=== PATIENT | male | born 1970 | race Caucasian/White ===

== ENCOUNTER 2017-01-03 23:44 | Emergency (ER) | payer BC ==
[2017-01-04] MEDS ORDERED: LORAZEPAM INJ 2 MG/1 ML VIAL IV ONE (00:06)
[2017-01-04] MEDS ORDERED: NORMAL SALINE 1000 ML 1,000 ML IV ONE (00:06)
[2017-01-04 00:53] LABS: ABSOLUTE BASOPHILS # (AUTO) 0.1 10^3/uL (0.0-0.2); ABSOLUTE EOSINOPHILS # (AUTO) 0.1 10^3/uL (0.0-0.6); ABSOLUTE LYMPHOCYTES (AUTO) 1.3 10^3/uL (0.5-4.7); ABSOLUTE MONOCYTES (AUTO) 0.7 10^3/uL (0.1-1.4); ABSOLUTE NEUT (AUTO) 5.2 10^3/uL (1.7-8.2); BASOPHILS % (AUTO) 0.7 % (0-2); EOSINOPHILS % (AUTO) 1.1 % (0-6); HEMATOCRIT 45.1 % (37.9-51.0); HEMOGLOBIN 15.6 g/dL (13.5-17.0); HGB HCT DIFFERENCE 1.7; LYMPHOCYTES % (AUTO) 17.7 % (13-45); MEAN CORPUSCULAR HEMOGLOBIN 31.5 pg (27.0-33.4); MEAN CORPUSCULAR HGB CONC 34.6 g/dL (32.0-36.0); MEAN CORPUSCULAR VOLUME 91 fl (80-97); MONOCYTES % (AUTO) 9.6 % (3-13); RED BLOOD COUNT 4.96 10^6/uL (4.35-5.55); RED CELL DISTRIBUTION WIDTH 12.9 % (11.5-14.0); SEGMENTED NEUTROPHILS % (AUTO) 70.9 % (42-78); WHITE BLOOD COUNT 7.3 10^3/uL (4.0-10.5)
--- NOTE | 2017-01-04 01:00 | ER Document Report ---
ED General - General Chief Complaint: Shortness Of Breath Stated Complaint: SHORT OF BREATH Notes: Patient is a 46-year-old male who presents with complaint of some shortness of breath. He says that he has not slept the last 24 hours. He says his also due to work. He missed his morning blood pressure medication. Tonight he certainly like his heart was racing. He felt short of breath. He did not have chest pain. His blood pressure was high. He said he felt unwell feel achy all over. He felt as if he was breathing rapidly. Paramedics placed him on oxygen. His oxygenation was 90% on room air when he arrived. He was tachycardic. Patient is on eyedrops for his glaucoma. He did look up side effects of eyedrops and said that symptoms he is having are listed in the possible side effects from the eyedrops. He's been taking eyedrops for 6 months. TRAVEL OUTSIDE OF THE [place] IN LAST 30 DAYS: No - Related Data Allergies/Adverse Reactions: levofloxacin [From Levaquin] Allergy (Verified 05/07/14 18:54) penicillin G [Penicillin G] Allergy (Verified 05/07/14 18:54) Past Medical History - Social History Smoking Status: Unknown if Ever Smoked Frequency of alcohol use: None Drug Abuse: None Family History: Reviewed & Not Pertinent - Past Medical History Cardiac Medical History: Reports: Hx Hypertension Pulmonary Medical History: Denies: Hx Tuberculosis - Immunizations Immunizations up to date: Yes Hx Diphtheria, Pertussis, Tetanus Vaccination: Yes Hx Pneumococcal Vaccination: 11/24/10 Review of Systems - Review of Systems Notes: My Normal Review Basic REVIEW OF SYSTEMS: CONSTITUTIONAL : Denies fever, chills, or sweats. Denies recent illness. EENT: Denies eye, ear, throat, or mouth pain or symptoms. Denies nasal or sinus congestion. CARDIOVASCULAR: Denies chest pain. RESPIRATORY: Short of breath GASTROINTESTINAL: Denies abdominal pain. Denies nausea, vomiting, or diarrhea. Denies constipation. Last BM: MUSCULOSKELETAL: Denies neck or back pain or joint pain or swelling. SKIN: Denies rash or skin lesions. NEUROLOGICAL: Denies altered mental status or loss of consciousness. Denies headache. Denies weakness or paralysis or loss of use of either side. Denies problems with gait or speech. Denies sensory or motor loss. ALL OTHER SYSTEMS REVIEWED AND NEGATIVE. Physical Exam - Vital signs Vitals: Temp Pulse Resp BP Pulse Ox 97.7 F 106 H 18 121/47 L 98 01/03/17 23:57 01/03/17 23:57 01/03/17 23:57 01/03/17 23:57 01/03/17 23:57 - Notes Notes: General Appearance: Well nourished, alert, cooperative, no acute distress, no obvious discomfort. Well-appearing. Vitals: reviewed, See vital signs table. Head: no swelling or tenderness to the head Eyes: PERRL, EOMI, Conjuctiva clear Mouth: No decreasd moisture Neck: Supple, no neck tenderness, No thyromegaly Lungs: No wheezing, No rales, No rhonci, No accessory muscle use, good air exchange bilaterally. Heart: Regular rate, Regular rythm, No murmur, no rub Abdomen: Normal BS, soft, No rigidity, No abdominal tenderness, No guarding, no rebound, no abdominal masses, no organomegaly Extremities: strength 5/5 in all extremities, good pulses in all extremities, no swelling or tenderness in the extremities, no edema. Skin: warm, dry, appropriate color, no rash Neuro: speech clear, oriented x 3, normal affect, responds appropriately to questions. Cranial nerves II through XII are intact. Distal sensation intact. Patient moves all extremities without difficulty. Course - Re-evaluation Re-evalutation: 01/04/17 01:30 Since receiving the Ativan patient feels much improved. Chest x-ray is pending. - Vital Signs Vital signs: Temp Pulse Resp BP Pulse Ox 97.7 F 106 H 15 104/61 97 01/03/17 23:57 01/03/17 23:57 01/04/17 03:01 01/04/17 03:01 01/04/17 03:01 - Laboratory Result Diagrams: 01/04/17 00:30 01/04/17 00:30 Laboratory results interpreted by me: 01/04/17 00:30 BUN 22 H Glucose 115 H Creatine Kinase 228 H - EKG Interpretation by Me Additional EKG results interpreted by me: 01/04/17 00:59 EKG is reviewed and interpreted by me. EKG shows normal sinus rhythm with rate of [address] segment elevation or depression. No ischemic T wave inversions. [place] level, QRS duration, QTC was are within normal range. Old EKG for comparison is from 05/07/2014. - Transfer of Care Notes: 01/04/17 05:56 Patient feels much improved after the Ativan. I suspect his symptoms of palpitations, difficulty breathing, feeling unwell most likely are related to extreme exhaustion and possibly a panic attack after being awake for over 24 hours from work. Work shows no external abnormalities. His symptoms improved with Ativan. He looks extremely well. His blood pressure is normal. Fairly safe to be discharged home. Encouraged to return to ER if he has recurrence of his symptoms or feels unwell. Patient agrees with plan and will be discharged home. Dictation of this chart was performed using voice recognition software; therefore, there may be some unintended grammatical errors. Discharge - Discharge Clinical Impression: Dyspnea Qualifiers: Dyspnea type: unspecified Qualified Code(s): R06.00 - Dyspnea, unspecified Condition: Good Disposition: HOME, SELF-CARE Additional Instructions: PLease rest over the next 24 hours. Please return to ER if you have recurrence of shortness of breath, any chest pain, or feel unwell. Forms: Return to Work Referrals: THOMAS WALLACE MD [Primary Care Provider] - 01/06/17
[2017-01-04 01:03] LABS: ALANINE AMINOTRANSFERASE 42 U/L (21-72); ALBUMIN 4.1 g/dL (3.5-5.0); ALKALINE PHOSPHATASE 88 U/L (38-126); ANION GAP 11 (5-19); ASPARTATE AMINO TRANSFERASE 26 U/L (17-59); BILIRUBIN,TOTAL 0.3 mg/dL (0.2-1.3); BLOOD UREA NITROGEN 22 mg/dL (7-20); CALCIUM 10.1 mg/dL (8.4-10.2); CARBON DIOXIDE 27 mmol/L (22-30); CHLORIDE 103 mmol/L (98-107); CREATINE KINASE 228 U/L (55-170); CREATININE RESULT 1.12 mg/dL (0.52-1.25); GLUCOSE 115 mg/dL (75-110); SODIUM 141.2 mmol/L (137-145); TOTAL PROTEIN 7.2 g/dL (6.3-8.2)
[2017-01-04 01:14] LABS: CREATINE KINASE MB 1.98 ng/mL (<4.55)
[2017-01-04 01:16] LABS: TROPONIN I < 0.012 ng/mL
[2017-01-04 03:27] VITALS: BP 104/61
--- NOTE | 2017-01-04 08:46 | EKG REPORT ---
SEVERITY:- OTHERWISE NORMAL ECG - SINUS RHYTHM LEFT AXIS DEVIATION : Confirmed by: Sebastián Dale MD 04-Jan-2017 08:45:23
== END 2017-01-04 03:26 | disposition home or self-care (01) ==
LOC: ER 23:44
DX: R06.02 Shortness of breath (principal); R00.2 Palpitations; I10 Essential (primary) hypertension; Z91.14 Patient's other noncompliance with medication regimen; R00.0 Tachycardia, unspecified; H40.9 Unspecified glaucoma; Z79.899 Other long term (current) drug therapy; Z88.1 Allergy status to other antibiotic agents; Z88.0 Allergy status to penicillin
CPT/HCPCS: 93005; 99285; 96361; 96374; 36415; 82553; 82550; 85025; 80053; 84484; 71020; 93010; J2060; J7030

== ENCOUNTER 2017-01-05 14:47 | Emergency (ER) | payer BC ==
--- NOTE | 2017-01-05 15:52 | ER Document Report ---
ED Medical Screen (RME) - General Chief Complaint: Abdominal Pain Stated Complaint: ABDOMINAL PAIN Time seen by provider: 15:50 Mode of Arrival: Ambulatory Information source: Patient Notes: 46-year-old male presents to ED for right lower quadrant abdominal pain for 2 days. Denies fevers, and denies nausea or vomiting. States she was in the emergency room 2 days ago for shortness of breath and elevated blood pressure. States he has a history of high blood pressure and is on lisinopril with Hydrocort Dyazide. I have greeted and performed a rapid initial assessment of this patient. A comprehensive ED assessment and evaluation of the patient, analysis of test results and completion of medical decision making process will be conducted by an additional ED providers. TRAVEL OUTSIDE OF THE [place] IN LAST 30 DAYS: No - Related Data Allergies/Adverse Reactions: levofloxacin [From Levaquin] Allergy (Verified 05/07/14 18:54) penicillin G [Penicillin G] Allergy (Verified 05/07/14 18:54) Past Medical History - Past Medical History Cardiac Medical History: Reports: Hx Hypertension Pulmonary Medical History: Denies: Hx Tuberculosis - Immunizations Immunizations up to date: Yes Hx Diphtheria, Pertussis, Tetanus Vaccination: Yes Physical Exam - Vital signs Vitals: Temp Pulse Resp BP Pulse Ox 97.4 F 81 18 141/79 H 96 01/05/17 15:23 01/05/17 15:23 01/05/17 15:23 01/05/17 15:23 01/05/17 15:23 Course - Vital Signs Vital signs: Temp Pulse Resp BP Pulse Ox 97.4 F 81 18 141/79 H 96 01/05/17 15:23 01/05/17 15:23 01/05/17 15:23 01/05/17 15:23 01/05/17 15:23
[2017-01-05 17:04] LABS: ABSOLUTE LYMPHOCYTES (AUTO) 0.9 10^3/uL (0.5-4.7); ABSOLUTE MONOCYTES (AUTO) 0.9 10^3/uL (0.1-1.4); ABSOLUTE NEUT (AUTO) 12.2 10^3/uL (1.7-8.2); BASOPHILS % (AUTO) 0.2 % (0-2); EOSINOPHILS % (AUTO) 0.3 % (0-6); HEMATOCRIT 45.7 % (37.9-51.0); HEMOGLOBIN 15.3 g/dL (13.5-17.0); HGB HCT DIFFERENCE 0.2; LYMPHOCYTES % (AUTO) 6.2 % (13-45); MEAN CORPUSCULAR HEMOGLOBIN 30.5 pg (27.0-33.4); MEAN CORPUSCULAR HGB CONC 33.6 g/dL (32.0-36.0); MEAN CORPUSCULAR VOLUME 91 fl (80-97); MONOCYTES % (AUTO) 6.4 % (3-13); RED BLOOD COUNT 5.02 10^6/uL (4.35-5.55); SEGMENTED NEUTROPHILS % (AUTO) 86.9 % (42-78)
[2017-01-05 17:09] LABS: APPEARANCE,URINE CLEAR; BILIRUBIN,URINE NEGATIVE (NEGATIVE); GLUCOSE, URINE NEGATIVE (NEGATIVE); KETONES,URINE 100 mg/dL (NEGATIVE); LEUKOCYTE ESTERASE,URINE NEGATIVE (NEGATIVE); NITRITE,URINE NEGATIVE (NEGATIVE); PROTEIN,URINE NEGATIVE (NEGATIVE); UROBILINOGEN,URINE NEGATIVE mg/dL (<2.0)
[2017-01-05 17:12] LABS: URINE SPECIFIC GRAVITY 1.011
[2017-01-05 17:23] LABS: ALANINE AMINOTRANSFERASE 44 U/L (21-72); ALBUMIN 5.1 g/dL (3.5-5.0); ALKALINE PHOSPHATASE 80 U/L (38-126); ANION GAP 14 (5-19); ASPARTATE AMINO TRANSFERASE 28 U/L (17-59); BILIRUBIN,TOTAL 0.6 mg/dL (0.2-1.3); BLOOD UREA NITROGEN 24 mg/dL (7-20); CARBON DIOXIDE 25 mmol/L (22-30); CHLORIDE 101 mmol/L (98-107); CREATININE RESULT 1.25 mg/dL (0.52-1.25); GLUCOSE 94 mg/dL (75-110); POTASSIUM 3.9 mmol/L (3.6-5.0); SODIUM 139.8 mmol/L (137-145); TOTAL PROTEIN 7.8 g/dL (6.3-8.2)
[2017-01-05] MEDS ORDERED: NORMAL SALINE 1000 ML 1,000 ML IV ONE (20:27)
--- NOTE | 2017-01-05 20:32 | ER Document Report ---
ED GI/ - General Chief Complaint: Abdominal Pain Stated Complaint: ABDOMINAL PAIN Mode of Arrival: Ambulatory Information source: Patient Notes: This is a 46-year-old male who presents with chief complaint of right lower quadrant discomfort that began yesterday morning and has persisted today. He has had no nausea and no vomiting but he does state that his appetite has been significantly decreased today. He last had 2 bites of barbecue at 1400 today. Last bowel movement was yesterday and was soft. He has had no fevers or chills. Of note he was seen 2 nights ago for shortness of breath and it was determined that he may be having some side effects from his glaucoma medications. He denies any dysuria, hematuria or flank pain. TRAVEL OUTSIDE OF THE [place] IN LAST 30 DAYS: No - Related Data Allergies/Adverse Reactions: levofloxacin [From Levaquin] Allergy (Verified 01/05/17 16:16) penicillin G [Penicillin G] Allergy (Verified 01/05/17 16:16) Past Medical History - General Information source: Patient - Social History Smoking Status: Never Smoker Frequency of alcohol use: None Drug Abuse: None Family History: Reviewed & Not Pertinent Patient has suicidal ideation: No Patient has homicidal ideation: No - Past Medical History Cardiac Medical History: Reports: Hx Hypertension Pulmonary Medical History: Denies: Hx Tuberculosis EENT Medical History: Reports: Other - glaucoma Renal/ Medical History: Denies: Hx Peritoneal Dialysis GI Medical History: Reports: Other - "celiac trait" which he states sometimes causes right lower quadrant discomfort Past Surgical History: Reports: Hx Orthopedic Surgery - Immunizations Immunizations up to date: Yes Hx Diphtheria, Pertussis, Tetanus Vaccination: Yes Hx Pneumococcal Vaccination: 11/24/10 Review of Systems - Review of Systems Notes: REVIEW OF SYSTEMS: CONSTITUTIONAL : Denies fever, chills, or sweats. Denies recent illness. EENT: Denies eye, ear, throat, or mouth pain or symptoms. Denies nasal or sinus congestion. CARDIOVASCULAR: Denies chest pain. RESPIRATORY: Denies cough, cold, or chest congestion. Denies shortness of breath, difficulty breathing, or wheezing. GASTROINTESTINAL: As per history of present illness GENITOURINARY: Denies difficulty urinating, painful urination, burning, frequency, or blood in urine. MUSCULOSKELETAL: Denies neck or back pain or joint pain or swelling. SKIN: Denies rash or skin lesions. HEMATOLOGIC : Denies easy bruising or bleeding. LYMPHATIC: Denies swollen, enlarged glands. NEUROLOGICAL: Denies altered mental status or loss of consciousness. Denies headache. PSYCHIATRIC: Denies anxiety or stress or depression. ALL OTHER SYSTEMS REVIEWED AND NEGATIVE. Physical Exam - Vital signs Vitals: Temp Pulse Resp BP Pulse Ox 97.4 F 81 18 141/79 H 96 01/05/17 15:23 01/05/17 15:23 01/05/17 15:23 01/05/17 15:23 01/05/17 15:23 - Notes Notes: General Appearance: Well nourished, alert, cooperative, no acute distress, no obvious discomfort. Well-appearing. Anxious affect and worried about a myriad of symptoms. Vitals: reviewed, See vital signs table. Head: no swelling or tenderness to the head Eyes: PERRL, EOMI, Conjuctiva clear Mouth: No decreased moisture Neck: Supple, no neck tenderness Lungs: No wheezing, No rales, No rhonci, No accessory muscle use, good air exchange bilaterally. Heart: Regular rate, Regular rythm, No murmur, no rub Abdomen: Normal BS, soft, No rigidity, mild tenderness to palpation to right lower quadrant and right mid-abdomen, no rebound Extremities: strength 5/5 in all extremities, good pulses in all extremities, no swelling or tenderness in the extremities, no edema. Skin: warm, dry, appropriate color, no rash Neuro: speech clear, oriented x 3, normal affect, responds appropriately to questions. Cranial nerves II through XII are intact. Distal sensation intact. Patient moves all extremities without difficulty. Course - Re-evaluation Re-evalutation: 01/05/17 21:34 I discussed the results of the patient's CT scan to include a normal appendix and no acute process. During the time of my discussion patient developed scattered hives on his left upper extremity and 1 spot on his left cheek. Will treat with IV Benadryl and Solu-Medrol as I suspect he may have a contrast allergy. Lungs clear to auscultation bilaterally no oral swelling noted he is speaking full sentences. 01/05/17 22:17 Patient reevaluated. His few scattered hives are resolving. He is pleasant and conversant and states he feels just fine. 01/05/17 22:21 01/05/17 22:23 Repeat abdominal exam: Soft, nondistended, mild tenderness to palpation on the right side of the abdomen without guarding, rebound, or rigidity. There is no acute abdomen. Again we reviewed his labs and his negative CT scan. I suspect that some of his symptoms are secondary to his celiac which he initially said sometimes gives him these symptoms. He does have a mild leukocytosis which is new, but with nonsurgical exam and a negative CT we'll send home and he will follow-up with his primary care physician. He did discuss strict return precautions including fevers, increasing pain, vomiting or worsening symptoms or concerns. He and his are comfortable with this plan and all questions are answered. 01/06/17 01:38 - Vital Signs Vital signs: Temp Pulse Resp BP Pulse Ox 97.6 F 69 16 105/60 92 01/05/17 23:29 01/05/17 23:29 01/05/17 23:29 01/05/17 23:29 01/05/17 23:29 - Laboratory Result Diagrams: 01/05/17 16:15 01/05/17 16:15 Laboratory results interpreted by me: 01/05/17 01/05/17 01/05/17 16:15 16:15 16:15 WBC 14.0 H Seg Neutrophils % 86.9 H Lymphocytes % 6.2 L Absolute Neutrophils 12.2 H BUN 24 H Albumin 5.1 H Urine Ketones 100 H - Diagnostic Test Radiology reviewed: Reports reviewed - No acute finding in the abdomen or pelvis on the CT scan. The appendix was visualized and normal. Discharge - Discharge Clinical Impression: Abdominal pain in male, Anxiety Allergic reaction Qualifiers: Encounter type: initial encounter Qualified Code(s): T78.40XA - Allergy, unspecified, initial encounter Condition: Stable Disposition: HOME, SELF-CARE Additional Instructions: ABDOMINAL PAIN: There are many causes of abdominal pain. Pain can mean a serious problem requiring surgery (such as appendicitis). It can also be an innocent problem that goes away on its own (such as a viral infection). Often, time must pass to determine the cause of pain. The physician does not feel that hospitalization is necessary, at present. Things may change within the next 24 hours. Call the doctor or come back for re- examination if any problems occur, such as: (1) Pain that becomes more severe, steady, or becomes concentrated in one specific area. Also, pain that is more severe with movement or coughing. (2) Vomiting that persists or becomes more frequent. (3) Blood in the vomitus, urine, or bowel movements. Blood in the stool may have a tarry or black appearance. (4) Shaking chills or fever greater than 100 degrees F. (5) The abdomen becomes more distended or swollen. (6) Bowel movements cease. (7) Failure to improve as expected. NORMAL EXAM AND WORKUP: At this time, your examination and workup show no significant abnormality. No significant abnormal physical findings are noted. All imaging (x-ray, CT scans, ultrasound) studies that were ordered show no significant abnormality. Although your examination and all studies that were ordered showed no significant abnormal finding, there are no examinations and no studies that are 100% accurate. There is always the possibility that some abnormality could exist and not be detected with physical examination or within the limits and capabilities of laboratory and other studies. You should return or follow up as you were instructed on your visit today for further evaluation if your symptoms do not resolve. ACUTE ALLERGIC REACTION: Your symptoms are due to an allergic reaction. Allergy can cause hives, swelling of the hands, feet, and face, hoarseness, and difficulty swallowing or breathing. It may be due to exposure to medication, animal dander, foods, infection, or insect bites. Medication is a common cause, even when prior use of this same medication caused no problems. Acute treatment may include adrenalin and antihistamines. Usually, the specific allergic agent can't be identified unless repeated episodes occur. Home treatment includes the following: (1) Stop any suspicious medications. This will be discussed with you. (2) Oral antihistamines for the next four to five days. Example, diphenhydramine (Benadryl) every four hours. (3) You may also use cimetidine (Tagamet), ranitidine (Zantac), or famotidine ( Pepcid) every four hours if diphenhydramine is not controlling itching and hives. (4) Avoid aspirin until the hives completely disappear. (5) Avoid hot baths or showers until the hives are completely gone. Call the doctor if faintness, difficulty swallowing, tightness in the chest , or wheezing occurs. STEROID MEDICATION INJECTION: You have been given an injection of medicine of the cortisone/steroid class. This medication is used to control inflammation or allergy. It is often continued as a pill for a short period of time, until the acute process subsides. There are usually no side effects from short-term use of cortisone-like medications. Some persons feel an increased sense of well-being and are not sleepy at bedtime. Long-term use of cortisone medications is best avoided, unless required for a severe condition. If your condition does not remit, or relapses after the course of corticosteroid medication, you should consult your physician. STEROID MEDICATION: You have been given a medicine of the cortisone/steroid class. This medication is used to control inflammation or allergy. It is usually only given for a short period of time, until the acute process subsides. There are usually no side effects from short-term use of cortisone-like medications. Some persons feel an increased sense of well-being and are not sleepy at bedtime. Long-term use of cortisone medications is best avoided, unless required for a severe condition. If your condition does not remit, or relapses after the course of corticosteroid medication, you should consult your physician. ANTIHISTAMINES: An antihistamine has been given and/or prescribed to control your symptoms. Antihistamines are used for many reasons, including itching, watering eyes, runny nose, allergic swelling, hives, and insect stings. Antihistamines may cause drowsiness, especially with the first dose. Do not operate machinery or drive while under the effects of the medication. Other common side effects include dry mouth and eyes. In older persons, antihistamines can occasionally cause urinary retention, constipation, and trouble focusing the eyes. Do not combine the medication with alcohol, or with any other medication without talking to your doctor. USE OF DIPHENHYDRAMINE: The use of diphenhydramine (Benadryl) has been recommended to control allergic symptoms. The 25 mg strength is available over- the-counter, as well as the elixir. This antihistamine is used for many symptoms. It's useful for itching, watering eyes and nose, allergic swelling, hives, and insect stings. The medication can be repeated four times daily. Age Elixir (12.5 mg/tsp) 25 mg pill 2-3 yr 1/2 tsp 4-8 yr 1 tsp 9-14 yr 2 tsp one tab adult 1-2 tabs Antihistamines may cause drowsiness, especially with the first dose. Do not operate machinery or drive while under the effects of the medication. Do not combine the medication with alcohol, or with any other medication without talking to your doctor. FOLLOW-UP CARE: If you have been referred to a physician for follow-up care, call the physician s office for an appointment as you were instructed or within the next two days. If you experience worsening or a significant change in your symptoms, notify the physician immediately or return to the Emergency Department at any time for re-evaluation. As we discussed, return for fever greater than 100.3, increasing pain, vomiting , or any worsening symptoms or concerns. Please follow up with your primary physician in 24 hours. Prescriptions: Prednisone 50 mg PO DAILY #4 tablet Forms: Return to Work Referrals: EVELYN GÓMEZ MD [Primary Care Provider] - Follow up in 3-5 days
[2017-01-05] MEDS ORDERED: METHYLPREDNISOLONE INJ 500 MG VIAL IV ONE (21:32)
[2017-01-05] MEDS ORDERED: DIPHENHYDRAMINE HCL 50 MG/ML VIAL IV ONE ×2 (21:32→21:33)
[2017-01-05] MEDS ORDERED: METHYLPREDNISOLONE INJ 125 MG/2 ML SDV ONE (21:44)
[2017-01-06 00:04] VITALS: BP 105/60
== END 2017-01-05 23:33 | disposition home or self-care (01) ==
LOC: ER 14:47
DX: R10.31 Right lower quadrant pain (principal); F41.9 Anxiety disorder, unspecified; T78.40XA Allergy, unspecified, initial encounter
CPT/HCPCS: 99284; 96361; 96374; 96375; 36415; 85025; 80053; 81001; 74177; J1200; J7030; J2920

== ENCOUNTER 2017-03-02 00:10 | Emergency (ER) | payer BC ==
[2017-03-02] MEDS ORDERED: KETOROLAC TROMETHAMINE 60 MG/2 ML SDV IM ONE (00:57)
--- NOTE | 2017-03-02 01:02 | ER Document Report ---
HPI - HPI Patient complains to provider of: left knee pain Onset: Yesterday Onset/Duration: Sudden Quality of pain: Throbbing Severity: Severe Pain Level: 5 Context: She presents to the emergency department with complaints of left knee pain. 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 Since that time he's had pain with walking. Also complains of pain when flexing his knee. Denies past medical history of injury to the knee. No complaints other symptoms such as fever vomiting diarrhea. Patient took 2 Flexeril and Motrin before coming to the emergency department complains of severe pain still. Associated Symptoms: None Exacerbated by: Movement, Walking Relieved by: Denies Similar symptoms previously: No Recently seen / treated by doctor: No - DERM Skin Color: Normal Past Medical History - General Information source: Patient - Social History Smoking Status: Never Smoker Chew tobacco use (# tins/day): No Frequency of alcohol use: None Drug Abuse: None Occupation: highway truck driver Lives with: Family Family History: Reviewed & Not Pertinent Patient has suicidal ideation: No Patient has homicidal ideation: No - Past Medical History Cardiac Medical History: Reports: Hx Hypertension Pulmonary Medical History: Denies: Hx Tuberculosis Renal/ Medical History: Denies: Hx Peritoneal Dialysis GI Medical History: Reports: Other - Celiac Past Surgical History: Reports: Hx Orthopedic Surgery - Immunizations Immunizations up to date: Yes Hx Diphtheria, Pertussis, Tetanus Vaccination: Yes Hx Pneumococcal Vaccination: 11/24/10 Vertical Provider Document - CONSTITUTIONAL Agree With Documented VS: Yes Exam Limitations: No Limitations General Appearance: WD/WN, Mild Distress - INFECTION CONTROL TRAVEL OUTSIDE OF THE [place] IN LAST 30 DAYS: No - HEENT HEENT: Atraumatic, Normocephalic - NECK Neck: Normal Inspection, Supple - RESPIRATORY Respiratory: No Respiratory Distress O2 Sat by Pulse Oximetry: 96 - CARDIOVASCULAR Cardiovascular: Regular Rate - MUSCULOSKELETAL/EXTREMETIES Musculoskeletal/Extremeties: Tender - Left anterior knee tender to palpation complains of pain with flexing, reports pain with drawer test, denies pain with valgus/varus stress - NEURO Level of Consciousness: Awake, Alert, Appropriate Motor/Sensory: No Motor Deficit - DERM Integumentary: Warm, Dry Adult Front & Back Diagram: 1 - reports pain Course - Re-evaluation Re-evalutation: 03/02/17 02:16 pt and updated on xray, intra-articular loose bodies , pt reports Toradol took the pain away. Requesting Toradol by mouth. Patient was instructed on the immobilizer crutches and follow-up with orthopedics on Friday. He reports he has to follow up with occupational therapy on Friday as it happened while he was working. - Vital Signs Vital signs: Temp Pulse Resp BP Pulse Ox 98.3 F 79 18 110/63 96 03/02/17 00:30 03/02/17 00:30 03/02/17 00:30 03/02/17 00:30 03/02/17 00:30 - Diagnostic Test Radiology reviewed: Image reviewed, Reports reviewed Procedures - Immobilization Left Knee Pre-Proc Neuro Vasc Exam: Normal Immobilizer type: Knee immobilizer Performed by: PCT Post-Proc Neuro Vasc Exam: Unchanged from pre-exam Discharge - Discharge Clinical Impression: Left anterior knee pain Condition: Stable Disposition: HOME, SELF-CARE Instructions: Antinausea Medication ([facility]), Use of Crutches ([facility]), Ice & Elevation ([facility]), Oral Narcotic Medication ([facility]), Toradol Injection ([facility]) Additional Instructions: *You have been evaluated for left knee pain *Maintain the splint, use the crutches *Rest/Ice/Elevate *Follow up with orthopedics-call for an appointment *Take medication as prescribed *Return to ED for worsening condition, changes, needs Prescriptions: Ketorolac Tromethamine [Toradol 10 mg Tablet] 10 mg PO Q6HP PRN #15 tablet PRN Reason: Forms: Return to Work
[2017-03-02] MEDS ORDERED: HYDROCODONE/ACETAMINOPHEN 5-325 MG 6 TAB/DSPK PO PRN (02:10)
[2017-03-02] MEDS ORDERED: ONDANSETRON ODT 4 MG TAB (6 TAB/DSPK) PO PRN (02:10)
[2017-03-02 02:22] VITALS: BP 132/68
== END 2017-03-02 02:20 | disposition home or self-care (01) ==
LOC: ER 00:10
DX: M23.42 Loose body in knee, left knee (principal); M25.562 Pain in left knee; I10 Essential (primary) hypertension
CPT/HCPCS: 99283; 96372; 73562; L1830; J1885

== ENCOUNTER 2017-07-19 06:19 | Emergency (ER) | payer BC ==
--- NOTE | 2017-07-19 07:36 | ER Document Report ---
ED Extremity Problem, Lower - General Mode of Arrival: Ambulatory Information source: Patient TRAVEL OUTSIDE OF THE [place] IN LAST 30 DAYS: No - HPI Patient complains to provider of: Pain Location: Foot - right heel Occurred: Other - 2 days Associated symptoms: Other - see above - General Chief Complaint: Foot Pain Stated Complaint: FOOT PAIN Time Seen by Provider: 07/19/17 06:47 Notes: Patient is a 47 year old male who presents to the ED with complaints of right heel pain x2 days. Patient is in physical therapy for a previous meniscus tear on his left lower extremity and has been favoring the right leg more. He has also been doing heel stretches that he does not normally do. Patient has also been going up and down ladders recently. Patient has a follow up with his orthopedic surgeon and physical therapy again on Friday. (DYAN HIGHTOWER) - Related Data Allergies/Adverse Reactions: Iodine and Iodide Containing Produc Allergy (Verified 03/02/17 00:33) levofloxacin [From Levaquin] Allergy (Verified 01/05/17 16:16) penicillin G [Penicillin G] Allergy (Verified 01/05/17 16:16) Past Medical History - General Information source: Patient - Social History Smoking Status: Unknown if Ever Smoked Family History: Reviewed & Not Pertinent Patient has suicidal ideation: No Patient has homicidal ideation: No - Past Medical History Cardiac Medical History: Reports: Hx Hypertension Pulmonary Medical History: Denies: Hx Tuberculosis Renal/ Medical History: Denies: Hx Peritoneal Dialysis Past Surgical History: Reports: Hx Orthopedic Surgery - Immunizations Immunizations up to date: Yes Hx Diphtheria, Pertussis, Tetanus Vaccination: Yes Hx Pneumococcal Vaccination: 11/24/10 Review of Systems - Review of Systems Constitutional: No symptoms reported EENT: No symptoms reported Cardiovascular: No symptoms reported Respiratory: No symptoms reported Gastrointestinal: No symptoms reported Genitourinary: No symptoms reported Male Genitourinary: No symptoms reported Musculoskeletal: See HPI, Other - right heel and ankle pain Skin: No symptoms reported Hematologic/Lymphatic: No symptoms reported Neurological/Psychological: No symptoms reported Physical Exam - General General appearance: Appears well, Alert In distress: None - HEENT Head: Normocephalic, Atraumatic Eyes: Normal Extraocular movements intact: Yes Pupils: PERRL - Respiratory Respiratory status: No respiratory distress - Cardiovascular Rhythm: Regular - Abdominal Distension: No distension - Back Back: Normal - Extremities General upper extremity: Normal inspection, Normal strength General lower extremity: Normal strength, Other - pain where achilles tendon meets the calcaneus on right lower extremity, no buldge, no signs of tendon rupture, specifically tender at pinpoint - Neurological Neuro grossly intact: Yes - Psychological Associated symptoms: Normal affect, Normal mood - Skin Skin Temperature: Warm Skin Moisture: Dry Skin Color: Normal - Vital signs Vitals: Temp Pulse Resp BP Pulse Ox 97.4 F 65 18 100/76 96 07/19/17 06:33 07/19/17 06:33 07/19/17 06:33 07/19/17 06:33 07/19/17 06:33 - Re-evaluation Re-evalutation: 07/19/17 07:56 Patient presents emerged from a 2 day history of pain over the back of his heel. Patient had a meniscal tear earlier this month and is been undergoing physical therapy and the past few days he has been doing up and down a ladder and stretching Achilles tendon during physical therapy that he has not done in years. He says it is aching. The pain is located right where the Achilles tendon meets the calcaneus there is no bulge no signs of tendon rupture is tender specifically at pinpoint like a tendinitis x-ray confirms similar. No other injury to the area ice elevation he has an orthopedic appointment on Friday and physical therapy on Friday and discussed reasons for ED return sooner (LASHA NULL) - Vital Signs Vital signs: Temp Pulse Resp BP Pulse Ox 97.4 F 56 L 18 114/66 94 07/19/17 06:33 07/19/17 08:15 07/19/17 08:15 07/19/17 08:15 07/19/17 08:15 Discharge - Discharge Clinical Impression: acute tendonitis Condition: Stable Disposition: HOME, SELF-CARE Additional Instructions: Tendonitis The pain you are having is due to tendonitis -- an inflammation around a muscle tendon. It's usually caused by overuse or repeated minor injuries ( strains) of the tendon. Tendonitis can take two to four weeks to heal. In fact, you may actually worsen for a few days despite treatment. Tendonitis is usually treated with rest, local heat, and antiinflammatory medication. Sometimes cold packs are recommended if the tendonitis has just started. If the pain is severe or prolonged, cortisone injections may be required. Call the doctor if pain or swelling become severe, if new discoloration or redness appears, or if numbness is noted. Follow-up with the orthopedic surgeon on Friday as scheduled ice elevation no weightbearing return for increasing worsening or new symptoms Prescriptions: Naproxen [Naprosyn 375 Mg Tablet] 375 mg PO DAILY #12 tablet Referrals: EVELYN GÓMEZ MD [Primary Care Provider] - Follow up as needed Scribe Attestation: 07/19/17 07:55 I personally performed the services described in the documentation reviewed the documentation recorded by my scribe in my presence and it accurately and completely records my words and actions (LASHA NULL) Scribe Documentation - Scribe Written by Hernan:: hernan Kirkland, 07/19/2017, 0952 acting as scribe for :: Mychal
--- NOTE | 2017-07-19 07:50 | RADIOLOGY REPORT (SQ) ---
EXAM DESCRIPTION: FOOT RIGHT COMPLETE COMPLETED DATE/TIME: 07/19/2017 7:27 am REASON FOR STUDY: right heel pain COMPARISON: None. NUMBER OF VIEWS: Three views. TECHNIQUE: AP, lateral and oblique radiographic images acquired of the right foot. LIMITATIONS: None. FINDINGS: MINERALIZATION: Normal. BONES: No acute fracture or dislocation. No worrisome bone lesions. Small plantar faucial enthesoph yte and small -moderate Achilles tendinous enthesophyte at the calcaneus. JOINTS: No effusions. SOFT TISSUES: No soft tissue swelling. No foreign body. OTHER: No other significant finding. IMPRESSION: Small right calcaneal enthesopathy. Otherwise, unremarkable. TECHNICAL DOCUMENTATION: JOB ID: [id number] [employer]- All Rights Reserved
[2017-07-19 08:17] VITALS: BP 114/66
== END 2017-07-19 08:15 | disposition home or self-care (01) ==
LOC: ER 06:19
DX: M79.671 Pain in right foot (principal); M77.9 Enthesopathy, unspecified
CPT/HCPCS: 99283

== ENCOUNTER 2017-09-06 16:31 | Inpatient (IN) | payer BC ==
--- NOTE | 2017-09-06 16:46 | ER Document Report ---
ED Medical Screen (RME) - General Chief Complaint: Palpitations Stated Complaint: SHORTNESS OF BREATH Time Seen by Provider: 09/06/17 16:40 TRAVEL OUTSIDE OF THE [place] IN LAST 30 DAYS: No - HPI Patient complains to provider of: Palpitations, shortness of breath Notes: 09/06/17 16:46 Patient is a 47-year-old male presenting to the emergency room complaining of palpitations and shortness of breath, EKG consistent with atrial fibrillation at a rate of 120 - Related Data Allergies/Adverse Reactions: Iodine and Iodide Containing Produc Allergy (Verified 09/06/17 16:35) levofloxacin [From Levaquin] Allergy (Verified 09/06/17 16:35) penicillin G [Penicillin G] Allergy (Verified 09/06/17 16:35) Past Medical History - Past Medical History Cardiac Medical History: Reports: Hx Hypertension Pulmonary Medical History: Denies: Hx Tuberculosis Renal/ Medical History: Denies: Hx Peritoneal Dialysis Past Surgical History: Reports: Hx Orthopedic Surgery - Immunizations Immunizations up to date: Yes Hx Diphtheria, Pertussis, Tetanus Vaccination: Yes Physical Exam - Vital signs Vitals: Temp Pulse Resp BP Pulse Ox 97.8 F 87 21 H 140/88 H 99 09/06/17 16:35 09/06/17 16:35 09/06/17 16:35 09/06/17 16:35 09/06/17 16:35 Course - Vital Signs Vital signs: Temp Pulse Resp BP Pulse Ox 97.8 F 87 21 H 140/88 H 99 09/06/17 16:35 09/06/17 16:35 09/06/17 16:35 09/06/17 16:35 09/06/17 16:35
[2017-09-06] MEDS ORDERED: DILTIAZEM HCL INJ 25 MG/5 ML VIAL IV ONE ×2 (16:56→17:16)
[2017-09-06] MEDS ORDERED: NORMAL SALINE 1000 ML 1,000 ML IV ONE (16:57)
[2017-09-06 17:12] LABS: ABSOLUTE BASOPHILS # (AUTO) 0.1 10^3/uL (0.0-0.2); ABSOLUTE EOSINOPHILS # (AUTO) 0.1 10^3/uL (0.0-0.6); ABSOLUTE LYMPHOCYTES (AUTO) 1.4 10^3/uL (0.5-4.7); ABSOLUTE NEUT (AUTO) 5.7 10^3/uL (1.7-8.2); BASOPHILS % (AUTO) 0.7 % (0-2); HEMATOCRIT 45.1 % (37.9-51.0); HEMOGLOBIN 15.8 g/dL (13.5-17.0); HGB HCT DIFFERENCE 2.3; MEAN CORPUSCULAR HEMOGLOBIN 31.7 pg (27.0-33.4); MEAN CORPUSCULAR HGB CONC 34.9 g/dL (32.0-36.0); MEAN CORPUSCULAR VOLUME 91 fl (80-97); MONOCYTES % (AUTO) 11.6 % (3-13); RED BLOOD COUNT 4.97 10^6/uL (4.35-5.55); RED CELL DISTRIBUTION WIDTH 12.8 % (11.5-14.0); SEGMENTED NEUTROPHILS % (AUTO) 69.7 % (42-78); WHITE BLOOD COUNT 8.2 10^3/uL (4.0-10.5)
[2017-09-06] MEDS ORDERED: DILTIAZEM HCL/D5W 125 MG/125 ML RTUINJ IV PRN (17:16)
[2017-09-06 17:17] LABS: PROTHROMBIN TIME 12.2 SEC (11.4-15.4)
[2017-09-06 17:18] LABS: PARTIAL THROMBOPLASTIN TIME 30.1 SEC (23.5-35.8)
--- NOTE | 2017-09-06 17:21 | ER Document Report ---
ED Cardiac - General Chief Complaint: Palpitations Stated Complaint: SHORTNESS OF BREATH Time Seen by Provider: 09/06/17 16:40 Information source: Patient Notes: 47-year-old male who presents today feeling some "pressure", palpitations, starting early this afternoon. He denies any nausea, vomiting, calf pain or leg swelling. Patient states he has a history of this in the past 1. He states that this occurred about 4-5 months ago. Patient has not prescribed any beta-kade medications. Patient has a primary care physician but not a induction coordination engineer. TRAVEL OUTSIDE OF THE [place] IN LAST 30 DAYS: No - HPI Patient complains to provider of: Chest pain, Palpitations Use of: denies: Alcohol Was the onset of pain: Sudden Is the pain a: New problem Chest pain location: Substernal Quality of pain: Intermittent, Mild, Achy Chest pain radiation location: None Severity now: None Severity at worst: Mild Pain level currently: Denies Cardiac risk factors: + Family history Positive cardiac history: No Associated symptoms: Other - See above Exacerbated by: Denies Relieved by: Nothing Similar symptoms previously: Yes Recently seen / treated by doctor: Yes - Related Data Allergies/Adverse Reactions: Iodine and Iodide Containing Produc Allergy (Verified 09/06/17 16:35) levofloxacin [From Levaquin] Allergy (Verified 09/06/17 16:35) penicillin G [Penicillin G] Allergy (Verified 09/06/17 16:35) Past Medical History - General Information source: Patient - Social History Smoking Status: Unknown if Ever Smoked Cigarette use (# per day): No Chew tobacco use (# tins/day): No Smoking Education Provided: No Frequency of alcohol use: None Drug Abuse: None Lives with: Alone Family History: Reviewed & Not Pertinent - Past Medical History Cardiac Medical History: Reports: Hx Hypertension Pulmonary Medical History: Denies: Hx Tuberculosis Renal/ Medical History: Denies: Hx Peritoneal Dialysis Past Surgical History: Reports: Hx Orthopedic Surgery - Immunizations Immunizations up to date: Yes Hx Diphtheria, Pertussis, Tetanus Vaccination: Yes Hx Pneumococcal Vaccination: 11/24/10 Review of Systems - Review of Systems Constitutional: denies: Fever EENT: denies: Eye discharge, Nose discharge Cardiovascular: Chest pain. denies: Orthopnea, Dyspnea, Syncope, Dizziness, Lightheaded Respiratory: Short of breath. denies: Hurts to breathe, Hemoptysis Gastrointestinal: denies: Vomiting Genitourinary: denies: Dysuria Musculoskeletal: denies: Leg swelling Skin: Other - no hives. denies: Rash Neurological/Psychological: Other - no slurred speech -: Yes All other systems reviewed and negative Physical Exam - Vital signs Vitals: Temp Pulse Resp BP Pulse Ox 97.8 F 87 21 H 140/88 H 99 09/06/17 16:35 09/06/17 16:35 09/06/17 16:35 09/06/17 16:35 09/06/17 16:35 Notes: Reviewed vital signs and nursing note as charted by RN. CONSTITUTIONAL: Alert and oriented and responds appropriately to questions. Well -appearing; well-nourished HEAD: Normocephalic; atraumatic CARD: Tachycardic and irregular; no murmurs, no clicks, no rubs, no gallops; symmetric distal pulses RESP: Normal chest excursion without splinting or tachypnea; breath sounds clear and equal bilaterally; no wheezes, no rhonchi, no rales ABD/GI: Normal bowel sounds; non-distended; soft, non-tender BACK: The back appears normal and is non-tender to palpation, there is no CVA tenderness EXT: Normal ROM in all joints; non-tender to palpation; no cyanosis, no effusions, no edema SKIN: No acute lesions noted NEURO: Moves all extremities equally; Motor and sensory function intact PSYCH: The patient's mood and manner are appropriate. Grooming and personal hygiene are appropriate. Course - Re-evaluation Re-evalutation: 09/06/17 17:20 Given the history and physical examination we have obtained basic labs, d-dimer , portable x-ray of the chest, and an EKG. We have given the patient some fluids as well as Cardizem. Blood pressure was stable. We attempted to control the patient's weight initially. I would like to rule out a possible pulmonary embolism given the new onset atrial fibrillation with some shortness of breath. My pretest probability is pretty low so only a d-dimer has been ordered. States he took 325 aspirin prior to arrival. 09/06/17 17:44 Labs thus far as recorded. Normal d-dimer. Patient's heart rate is around 110. Blood pressure still stable. Patient is on a diltiazem drip. 09/06/17 17:52 Chest x-ray shows normal heart, normal mediastinum, no fractures, normal lung [place], no pneumothorax. Heart rate currently 101. Blood pressure still stable. Patient will be admitted to the hospitalist service. - Vital Signs Vital signs: Temp Pulse Resp BP Pulse Ox 97.8 F 87 21 H 140/88 H 99 09/06/17 17:43 09/06/17 16:35 09/06/17 16:35 09/06/17 16:35 09/06/17 16:35 - Laboratory Result Diagrams: 09/06/17 16:53 09/06/17 16:53 Laboratory results interpreted by me: 09/06/17 16:53 Calcium 10.5 H Critical Care Note - Critical Care Note Total time excluding time spent on procedures (mins): 40 Discharge - Discharge Clinical Impression: New onset atrial fibrillation, Atrial fibrillation with rapid ventricular response Condition: Fair Disposition: ADMITTED OBSERVATION Admitting Provider: Hospitalist Unit Admitted: Telemetry
--- NOTE | 2017-09-06 17:25 | EKG REPORT ---
SEVERITY:- ABNORMAL ECG - ATRIAL FIBRILLATION, V-RATE 93-152 BORDERLINE LEFT AXIS DEVIATION ABNRM R PROG, CONSIDER ASMI OR LEAD PLACEMENT : Confirmed by: Sebastián Dale MD 06-Sep-2017 17:24:58
[2017-09-06 17:33] LABS: ALANINE AMINOTRANSFERASE 50 U/L (21-72); ALKALINE PHOSPHATASE 84 U/L (38-126); ANION GAP 13 (5-19); ASPARTATE AMINO TRANSFERASE 26 U/L (17-59); BILIRUBIN,DIRECT 0.4 mg/dL (0.0-0.4); BILIRUBIN,TOTAL 0.5 mg/dL (0.2-1.3); BLOOD UREA NITROGEN 20 mg/dL (7-20); CALCIUM 10.5 mg/dL (8.4-10.2); CARBON DIOXIDE 28 mmol/L (22-30); CHLORIDE 102 mmol/L (98-107); CREATININE RESULT 0.96 mg/dL (0.52-1.25); GLUCOSE 92 mg/dL (75-110); POTASSIUM 4.2 mmol/L (3.6-5.0); SODIUM 143.4 mmol/L (137-145); TOTAL PROTEIN 7.7 g/dL (6.3-8.2)
[2017-09-06 17:37] LABS: D-DIMER < 0.27 ug/mL (0.00-0.50)
[2017-09-06] MEDS ORDERED: LEVALBUTEROL HCL NEB 0.63 MG/3 ML AMPUL NEB PRN (18:39)
[2017-09-06] MEDS ORDERED: ONDANSETRON HCL INJ/PF 4 MG/2 ML SDV IV PRN (18:39)
[2017-09-06] MEDS ORDERED: KETOROLAC TROMETHAMINE 10 MG TABLET PO PRN (18:51)
[2017-09-06 19:07] LABS: APPEARANCE,URINE CLEAR; BILIRUBIN,URINE NEGATIVE (NEGATIVE); GLUCOSE, URINE NEGATIVE (NEGATIVE); KETONES,URINE NEGATIVE (NEGATIVE); LEUKOCYTE ESTERASE,URINE NEGATIVE (NEGATIVE); NITRITE,URINE NEGATIVE (NEGATIVE); PROTEIN,URINE NEGATIVE (NEGATIVE); URINE SPECIFIC GRAVITY 1.002; UROBILINOGEN,URINE NEGATIVE mg/dL (<2.0)
--- NOTE | 2017-09-06 19:16 | RADIOLOGY REPORT (SQ) ---
EXAM DESCRIPTION: CHEST SINGLE VIEW COMPLETED DATE/TIME: 09/06/2017 6:38 pm REASON FOR STUDY: sob COMPARISON: 01/04/2017 EXAM PARAMETERS: NUMBER OF VIEWS: One view. TECHNIQUE: Single frontal radiographic view of the chest acquired. RADIATION DOSE: NA LIMITATIONS: None. FINDINGS: LUNGS AND PLEURA: No opacities, masses or pneumothorax. No pleural effusion. MEDIASTINUM AND HILAR STRUCTURES: No masses. Contour normal. HEART AND VASCULAR STRUCTURES: Heart normal in size. Normal vasculature. BONES: No acute findings. HARDWARE: None in the chest. OTHER: No other significant finding. IMPRESSION: NO ACUTE RADIOGRAPHIC FINDING IN THE CHEST. TECHNICAL DOCUMENTATION: JOB ID: [id number]
[2017-09-06] MEDS ORDERED: METOPROLOL SUCCINATE 25 MG TAB.SR.24H PO SCH (22:00)
[2017-09-07] MEDS: ACETAMINOPHEN 325 MG TABLET PO PRN (00:36)
[2017-09-07] MEDS: ATORVASTATIN CALCIUM 80 MG TABLET PO SCH ×2 (01:31→23:04)
[2017-09-07] MEDS ORDERED: INFLUENZA ADLT QUAD (36MOS+) 2017-18 VAC 0.5 ML SYR IM PRN (01:47)
--- NOTE | 2017-09-07 02:38 | PDOC H&P ---
History of Present Illness Admission Date/PCP: 09/06/17 18:39 Patient complains of: Shortness of breathe History of Present Illness: FABIOLA ZHANG is a 47 year old male presenting with a 1 day complaint of having rapid heart beat. Patient states he was sitting down having lunch at work, when he felt short of breathe. He states he could feel his heart beating irregularly. He states states that this happened to him 6 months ago 6 he was started on some eye drops for his glaucoma which could cause a fib. He stopped taking that medication. Patient states he was treated for a fib and discharged. He states that something happened 2 years ago but after the records were reviewed, it was not afib at that time it was acid reflux. Patient reports having a stress test 2 year ago which was negative. In the ED, he was found to be in afib with RVR. Patient was given cardizem bolus followed by cardizem gtt. Hospitalist called to admit and treat patient for afib with RVR. Patient was admitted to [facility]. Past Medical History Cardiac Medical History: Reports: Atrial Fibrillation, Hyperlipidema, Hypertension Pulmonary Medical History: Denies: Tuberculosis EENT Medical History: Reports: Other - glaucoma Endocrine Medical History: Reports: Obesity, Other - pre diabetes, hypogonadism Renal/ Medical History: Reports: None GI Medical History: Reports: Other - Celiac carrier Psychiatric Medical History: Denies: Alcohol Dependency, Tobacco Dependency Past Surgical History Past Surgical History: Reports: Orthopedic Surgery Social History Information Source: Patient Lives with: Spouse/Significant other Smoking Status: Never Smoker Frequency of Alcohol Use: None Hx Recreational Drug Use: No Drugs: None Hx Prescription Drug Abuse: No - Advance Directive Resuscitation Status: Full Code Family History Family History: DM, Hypertension, Other - celiac disease Parental Family History Reviewed: Yes Children Family History Reviewed: No Sibling(s) Family History Reviewed.: No Medication/Allergy Home Medications: Bimatoprost [Lumigan] 1 drop OU QHS 09/06/17 Hydrochlorothiazide [Hydrochlorothiazide] 12.5 mg PO QAM 09/06/17 Lisinopril [Lisinopril] 10 mg PO BID 09/06/17 Allergies/Adverse Reactions: penicillin G [Penicillin G] Allergy (Severe, Verified 09/07/17 00:06) Iodine and Iodide Containing Produc Allergy (Intermediate, Verified 09/07/17 00: 06) levofloxacin [From Levaquin] Allergy (Intermediate, Verified 09/07/17 00:06) Review of Systems Constitutional: ABSENT: chills, fever(s), headache(s), weight gain, weight loss Eyes: ABSENT: visual disturbances Ears: ABSENT: hearing changes Cardiovascular: PRESENT: chest pain, palpitations. ABSENT: dyspnea on exertion , edema, orthropnea Respiratory: PRESENT: dyspnea. ABSENT: cough, hemoptysis Gastrointestinal: ABSENT: abdominal pain, constipation, diarrhea, hematemesis, hematochezia, nausea, vomiting Genitourinary: ABSENT: dysuria, hematuria Musculoskeletal: PRESENT: other - neck pain Integumentary: ABSENT: rash, wounds Neurological: ABSENT: abnormal gait, abnormal speech, confusion, dizziness, focal weakness, syncope Psychiatric: ABSENT: anxiety, depression, homidical ideation, suicidal ideation Endocrine: ABSENT: cold intolerance, heat intolerance, polydipsia, polyuria Hematologic/Lymphatic: ABSENT: easy bleeding, easy bruising Physical Exam Vital Signs: Temp Pulse Resp BP Pulse Ox 97.8 F 87 18 108/82 97 09/06/17 17:43 09/06/17 16:35 09/06/17 20:01 09/06/17 20:01 09/06/17 20:01 General appearance: PRESENT: mild distress, obese, well-developed, well- nourished Head exam: PRESENT: atraumatic, normocephalic Eye exam: PRESENT: conjunctiva pink, EOMI. ABSENT: scleral icterus Ear exam: PRESENT: normal external ear exam Mouth exam: PRESENT: moist Neck exam: PRESENT: full ROM. ABSENT: carotid bruit, JVD, lymphadenopathy, thyromegaly Respiratory exam: PRESENT: clear to auscultation christel. ABSENT: rales, rhonchi, wheezes Cardiovascular exam: PRESENT: irregular rhythm. ABSENT: diastolic murmur, rubs , systolic murmur Pulses: PRESENT: normal dorsalis pedis pul Vascular exam: PRESENT: normal capillary refill GI/Abdominal exam: PRESENT: normal bowel sounds, soft. ABSENT: distended, guarding, mass, organolmegaly, rebound, tenderness Rectal exam: PRESENT: deferred Extremities exam: PRESENT: full ROM. ABSENT: calf tenderness, clubbing, pedal edema Neurological exam: PRESENT: alert, awake, oriented to person, oriented to place , oriented to time, oriented to situation, CN II-XII grossly intact. ABSENT: motor sensory deficit Psychiatric exam: PRESENT: appropriate affect, normal mood. ABSENT: homicidal ideation, suicidal ideation Skin exam: PRESENT: dry, intact, warm. ABSENT: cyanosis, rash Results Impressions: Chest X-Ray 09/06/17 16:45 IMPRESSION: NO ACUTE RADIOGRAPHIC FINDING IN THE CHEST. Assessment & Plan - Diagnosis (1) Atrial fibrillation with rapid ventricular response Is this a current diagnosis for this admission?: Yes Plan: New onset in nature. Patient states this happened 6 months ago and that he was treated here but there is no record. Patient currently on cardizem drip and rate is better controlled. Will start on low dose metoprolol. Will check T4, magnesium and echo. Patient on telemetry. Will consult cardiology. EKG in the am. (2) Obesity (BMI 30.0-34.9) Is this a current diagnosis for this admission?: Yes Plan: Patient states he is watching his caloric intake and have lost 20lbs. (3) Hypertension Qualifiers: Hypertension type: essential hypertension Qualified Code(s): I10 - Essential (primary) hypertension Is this a current diagnosis for this admission?: Yes Plan: Patient normal takes lisinopril HCTZ. Will hold this medication for now. Can resume once off cardizem drip. (4) Prediabetes Plan: Patient given history of pre diabetes. Will check A1c. (5) Hyperlipidemia Qualifiers: Hyperlipidemia type: other hyperlipidemia Qualified Code(s): E78.4 - Other hyperlipidemia Is this a current diagnosis for this admission?: Yes Plan: Check lipid panel in the am. Resume statin. - Time Time Spent: 30 to 50 Minutes Medications reviewed and adjusted accordingly: Yes Anticipated discharge: Home Within: within 48 hours
[2017-09-07 05:15] LABS: CHOLESTEROL 176.58 mg/dL (0-200); Direct HDL 28 mg/dL (>40); TRIGLYCERIDES 171 mg/dL (<150)
[2017-09-07 05:20] LABS: ANION GAP 12 (5-19); BLOOD UREA NITROGEN 19 mg/dL (7-20); CALCIUM 9.3 mg/dL (8.4-10.2); CARBON DIOXIDE 27 mmol/L (22-30); CHLORIDE 104 mmol/L (98-107); CREATININE RESULT 1.02 mg/dL (0.52-1.25); GLUCOSE 99 mg/dL (75-110); POTASSIUM 4.3 mmol/L (3.6-5.0); SODIUM 143.1 mmol/L (137-145)
[2017-09-07 05:27] LABS: DIRECT LDL 120 mg/dL (<100)
[2017-09-07] MEDS ORDERED: DILTIAZEM HCL/D5W 125 MG/125 ML RTUINJ IV PRN (05:29)
[2017-09-07 05:31] LABS: VLDL CHOLESTEROL 34.2 mg/dL (10-31)
[2017-09-07] MEDS: LANSOPRAZOLE 15 MG TAB.RAP.DR PO SCH (05:52)
[2017-09-07] MEDS ORDERED: METOPROLOL TARTRATE 25 MG TABLET PO SCH (06:00)
--- NOTE | 2017-09-07 07:59 | EKG REPORT ---
SEVERITY:- NORMAL ECG - SINUS RHYTHM : Confirmed by: Sebastián Dale MD 07-Sep-2017 07:58:38
--- NOTE | 2017-09-07 08:00 | EKG REPORT ---
SEVERITY:- ABNORMAL ECG - SINUS RHYTHM CONSIDER ANTEROSEPTAL INFARCT NONSPECIFIC INFERIOR ST-T CHANGES : Confirmed by: Sebastián Dale MD 07-Sep-2017 08:00:18
[2017-09-07] MEDS: ENOXAPARIN SODIUM INJ 40 MG/0.4 ML DISP.SYRIN SUBCUT SCH (10:00)
[2017-09-07] MEDS ORDERED: PREDNISONE 20 MG TABLET PO SCH (10:00)
[2017-09-07] MEDS: METOPROLOL SUCCINATE 25 MG TAB.SR.24H PO SCH ×2 (10:00→23:49)
[2017-09-07] MEDS ORDERED: NAPROXEN 375 MG TABLET PO SCH (10:00)
[2017-09-07] MEDS: ASPIRIN 325 MG TABLET, ENT COATED PO SCH (12:01)
--- NOTE | 2017-09-07 15:31 | PDOC PROGRESS REPORT ---
Subjective Progress Note for:: 09/07/17 Subjective:: Patient seen with at bedside. Patient denies chest pain, shortness of breath, abdominal pain, nausea, vomiting , fevers, chills, diarrhea, constipation, headache, new onset weakness. Physical Exam Vital Signs: Temp Pulse Resp BP Pulse Ox 97.5 F 56 L 18 111/64 97 09/07/17 11:47 09/07/17 11:47 09/07/17 11:47 09/07/17 11:47 09/07/17 11:47 Intake & Output 09/06/17 09/07/17 09/08/17 06:59 06:59 06:59 Intake Total 1262 474 Output Total 650 100 Balance 612 374 Weight 94.3 kg Exam: General: Obese, awake alert and oriented x3, no acute respiratory distress HEENT: AT/NC, PERRL, EOMI, oropharynx is moist, pink, no scleral icterus, no conjunctival injection Neck: No JVD, trachea midline Chest: Clear to auscultation bilaterally, no wheezes rhonchi or rales CV: Regular rate and rhythm, normal S1 and S2, no murmur, rub, or gallop Abdomen: Soft, nontender to palpation, nondistended, active bowel sounds; no rebound, rigidity, or guarding Extremities: No cyanosis, clubbing or edema Neuro: Cranial nerves II through XII are grossly intact without focal deficits; awake alert and oriented x3 Psych: Normal mood and affect Results Laboratory Results: 09/07/17 04:11 09/07/17 09/07/17 09/07/17 04:11 04:11 04:11 Sodium 143.1 Potassium 4.3 Chloride 104 Carbon Dioxide 27 Anion Gap 12 BUN 19 Creatinine 1.02 Est GFR ( Amer) > 60 Est GFR (Non-Af Amer) > 60 Glucose 99 Calcium 9.3 Triglycerides 171 H Cholesterol 176.58 LDL Cholesterol Direct 120 H VLDL Cholesterol 34.2 H HDL Cholesterol 28 L Free T4 1.03 Impressions: Chest X-Ray 09/06/17 16:45 IMPRESSION: NO ACUTE RADIOGRAPHIC FINDING IN THE CHEST. Assessment & Plan - Diagnosis (1) Atrial fibrillation with rapid ventricular response Is this a current diagnosis for this admission?: Yes Plan: Patient has been converted. He has been placed on metoprolol. Appreciate cardiology recommendations. Have initiated patient on aspirin for anticoagulation and I suggested in light of patient's active lifestyle that he follow-up with his primary care physician for risk stratification regarding chronic anticoagulation with Eliquis or Xarelto if this turns out to be a nonvalvular A. fib. Currently pending echocardiogram tomorrow. Patient is quite concerned about side effects ergo I have some concerns about starting him on a newer agent. (2) Hyperlipidemia Qualifiers: Hyperlipidemia type: other hyperlipidemia Qualified Code(s): E78.4 - Other hyperlipidemia Is this a current diagnosis for this admission?: Yes Plan: Have recommended statin or 6 months of exercise and diet modification to be followed with his primary care physician. His LDL is 120. (3) Hypertension Qualifiers: Hypertension type: essential hypertension Qualified Code(s): I10 - Essential (primary) hypertension Is this a current diagnosis for this admission?: Yes Plan: Currently well-controlled. (4) Obesity (BMI 30.0-34.9) Is this a current diagnosis for this admission?: Yes - Time Time Spent with patient: 35 or more minutes Medications reviewed and adjusted accordingly: Yes Anticipated discharge: Home Within: within 24 hours
[2017-09-07] MEDS ORDERED: BIMATOPROST 0.01% OPH SOLN 2.5 ML/BOTTLE OU SCH (22:00)
--- NOTE | 2017-09-07 22:38 | CONSULTATION REPORT E ---
Consultation Report NAME: FABIOLA ZHANG : 1970 AGE: 47Y DATE: 09/07/2017 306 A TO: KOFFI MEYER M.D. FROM: Requesting Physician REASON FOR CONSULTATION: Atrial flutter with rapid ventricular response, now converted to sinus rhythm. HISTORY OF PRESENT ILLNESS: The patient is a 44-year-old male who states that since yesterday evening he has been having palpitations and shortness of breath. He says the heart rate was very irregular and he could feel it and when he walked he was dizzy, but he had no syncope or near syncope. He denies any wheezing. There is no chest pain or discomfort. There is no PND or orthopnea. There are no TIA or CVA symptoms. The patient came to the emergency room and was found to be in atrial fibrillation with rapid ventricular response and he was given Cardizem drip and has converted to sinus. Now he is on metoprolol 25 mg p.o. q.12 h. and also aspirin 325 mg p.o. daily. PAST MEDICAL HISTORY: He states that a few years ago he had glaucoma and prescribed a medication and that put him into atrial fibrillation, but he did convert to sinus at that time. Since then this is second time he is having this. He has a history of hyperlipidemia. He has a history of hypertension. He has a history of prediabetes and he also states that he is a carrier for celiac disease but he does not have it. There is no history of TIA or CVA, no history of thyroid disease, no history of anxiety and depression. The patient states that for his diabetes he does not take any sugar in his food of any kind and he does not eat any sweets. He also has a history of obesity but he has lost 20 pounds but still seems to be mild to moderately obese. PAST SURGICAL HISTORY: He has had surgery for skull fracture when he was young and has not had any ill effects from that. He also states he had vasectomy and also states that he has a history of left knee meniscectomy. SOCIAL HISTORY: The patient does not smoke. There is no history of EtOH abuse. ADVANCED DIRECTIVES: The patient is a FULL CODE. His is his surrogate healthcare decision maker. FAMILY HISTORY: Positive for diabetes mellitus, hypertension, celiac disease. There is no history of coronary artery disease in the family and he has no siblings. ALLERGIES: 1. PENICILLIN G. 2. SEVERE ALLERGY TO IODINE AND IODINE-CONTAINING PRODUCTS. 3. LEVAQUIN. HOME MEDICATIONS: 1. Lumigan 1 drop each eye at bedtime. 2. Hydrochlorothiazide 12.5 mg p.o. q.a.m. 3. Lisinopril 10 mg p.o. b.i.d. HOSPITAL MEDICATIONS: 1. Tylenol 650 mg p.o. q.4 h. p.r.n. 2. Aspirin 325 mg p.o. daily. 3. Atorvastatin 20 mg p.o. at bedtime for his hyperlipidemia. 4. Lumigan 1 drop each eye at bedtime. 5. Lovenox 40 mg subcutaneously daily. 6. He will be getting the flu vaccine 0.5 mL on the day of discharge. 7. Prevacid 15 mg p.o. at 6 a.m. 8. Metoprolol 25 mg p.o. q.12 h. 9. Zofran 4 mg IV q.4 h. p.r.n. REVIEW OF SYSTEMS: CONSTITUTIONAL: There are no fever, chills or rigors. There is no weight gain but the patient has lost 20 pounds. HEENT: Head: In childhood he had skull fracture for which he had surgery and he is doing better now. He denies any headaches or dizziness. Eyes: There is no amblyopia or diplopia. There is no amaurosis fugax. He has a history of glaucoma. Ears: No history of hearing loss, no history of tinnitus, no history of recurrent ear infections. Nose: No history of nasal polyps. No history of nosebleeds. No history of hay fever. Mouth: No history of ulcers in the mouth, no bleeding from the gums, no altered taste sensation. Throat: No history of recurrent sore throats. No history of odynophagia or dysphagia, SKIN: No history of skin rashes or skin lesions. No history of pruritus. There is no history of yellowish discoloration of the skin. NECK: No history of C-spine arthritis. No history of lymphadenopathy. No history of goiter. LUNGS: No history of asthma or COPD but when the patient had COPD, he was short of breath and dizzy. No history of sleep apnea. No history of pulmonary embolism. No history of pneumonia. No history of COPD; patient is nonsmoker. No history of wheezing or pleuritic chest pain or hemoptysis. CARDIAC: History of hypertension. This is his second episode of atrial fibrillation. He has now converted to sinus bradycardia. He states his hypertension is well controlled. There is no history of SC or congestive heart failure. No history of anginal symptoms, no history of PND or orthopnea. No history of leg edema. No history of syncope. He did have some dizziness when he had atrial fibrillation with rapid ventricular response. GASTROINTESTINAL: No history of GI bleed. He is a carrier of celiac disease but does not have the disease. He has no history of fatty food intolerance, no history of hepatitis, no history of jaundice. No history of altered bowel movements. No history of GI bleed. RENAL: No history of chronic kidney disease. No history of symptoms of enlarged prostate. No history of hematuria, pyuria or dysuria. MUSCULOSKELETAL: Denies any arthritis or collagen vascular disease. CENTRAL NERVOUS SYSTEM: No history of TIA or CVA. No history of seizures, headaches or migraines. PSYCHIATRIC: No history of anxiety or depression. No history of suicidal or homicidal ideation. VASCULAR: No history of calf or buttock claudication. No history of DVT. HEMATOLOGICAL: No history of bleeding diathesis. No history of clotting disorders. No history of anemia. PHYSICAL EXAMINATION: GENERAL: At present the patient is in no acute distress. He is mildly to moderately obese but well groomed. VITAL SIGNS: He is afebrile with a temperature of 97.4 degrees Fahrenheit, pulse is 52 beats per minute, blood pressure is 104/59, respirations are 18 per minute, 02 sats are 97% on room air. HEENT: Head is atraumatic, normocephalic. Eyes: Pupils are equal, round, regular, reactive to light and accommodation. Extraocular movements are normal. There is no conjunctival pallor. There is no scleral icterus. Ears: Tympanic membranes are intact. There are no lesions on the pinna. There are no recurrent ear infections. Nose: Nares are patent. There is no inflammation of the nasal mucous membranes. There is no nasal polyps. Mouth: Mucous membranes of the mouth are moist. Tongue is moist. There are no ulcers. There is no bleeding from the gums. Throat: There is no exudate in the throat. There is no redness of the oropharynx. SKIN: There are no skin rashes. There is no petechia or ecchymosis. There are no skin lesions. NECK: Supple. There is no JVD. Carotids are equal. There is no bruit. There is no lymphadenopathy. There is no goiter. Trachea is central. LUNGS: Clear to auscultation and percussion. There is no chest wall tenderness. HEART: S1 and S2 are heard. There is no S3 gallop. There is no S4 gallop. There is a systolic murmur in the left sternal border and the apex. There is no rub. There is no gallop. There is a systolic murmur in the left sternal border and the apex with faint radiation to the left axilla suggestive of possible MR. ABDOMEN: Soft, nontender. There is no hepatosplenomegaly. Bowel sounds are well heard. There are no tender areas or masses or lesions. EXTREMITIES: Femorals are well felt. There is no pedal edema. There is no DVT or cellulitis. There is no cyanosis or clubbing. There is no calf tenderness. CENTRAL NERVOUS SYSTEM: The patient is conscious, awake, alert, oriented x3 with no focal deficits. PSYCHIATRIC: The patient's judgment and insight are intact. His affect is normal. DIAGNOSTIC TEST RESULTS: The patient's initial EKG shows atrial fibrillation with rapid ventricular response of 120 and also borderline left axis deviation, abnormal RV progression most likely secondary to lead placement. His subsequent EKG yesterday showed sinus rhythm with a heart rate of 60 beats per minute, borderline RV progression most likely secondary to lead placement, nonspecific inferior ST-T changes. His subsequent EKG showed sinus rhythm, within normal limits. The patient's chest x-ray was negative for any acute process. The patient's white count is 8200, hemoglobin is 15.8, hematocrit is 45.1, and his platelet count is 223,000. His D-dimer is less than 0.27, his PTT is 30.1, his INR is 0.85, pro time is 12.2. Sodium 143.1, potassium 4.3, chloride 104, CO2 27, BUN 19, creatinine 1.02, GFR is greater than 60, and his glucose is 99 and his hemoglobin A1c is 5.2. Calcium is 9.3. The patient TSH is 1.30, free T4 is 1.03. The patient's triglycerides is 171, his total cholesterol is 176.58, his LDL cholesterol is elevated at 120 and his HDL cholesterol is low at 28. His urine has a small amount of blood, otherwise is normal. IMPRESSION: 1. Atrial fibrillation with rapid ventricular response, this is in paroxysm, now the patient is in sinus rhythm. Continue metoprolol. Will get an echocardiogram to see what if patient has mitral valve disease since the patient's corrected CHADS-VASc score is 1 and he is at moderate risk for stroke and, hence, would recommend chronic anticoagulation, but will check an echo tomorrow to see what type of blood thinner needs to be. I will discuss with him and his if there is Coumadin and with Coumadin if someone should bleed on Coumadin, it can be reversed with vitamin K and fresh frozen plasma but it is very difficult to keep PT/INR in therapeutic range and also there are dietary restrictions and the patient cannot eat green leafy vegetables but will make a decision tomorrow. 2. Hypertension. Seems to be well controlled. 3. Systolic murmur, questionable MR. 4. Prediabetes. 5. Carrier for celiac disease. 6. History of glaucoma. 7. Hyperlipidemia. RECOMMENDATIONS: 1. Will continue the patient on aspirin for now. 2. Will continue his glaucoma eyedrops and continue his lipid agents. Note that the patient was seen at 11 OCLOCK and 45 minutes spent on the patient with more than 50% of the time spent on direct patient care and also discussions of the risks of anticoagulation. Will follow with you. Later would recommend a Lexiscan Cardiolite stress test. DICTATING PHYSICIAN: KOFFI MEYER M.D. [id number] PHY#: [id number] ID: [id number] JOB#: [id number] ACCT: [id number] cc:KOFFI MEYER M.D. > TIFFANIE
[2017-09-08] MEDS: LANSOPRAZOLE 15 MG TAB.RAP.DR PO SCH (06:04)
[2017-09-08] MEDS: METOPROLOL SUCCINATE 25 MG TAB.SR.24H PO SCH (10:36)
[2017-09-08] MEDS: ASPIRIN 325 MG TABLET, ENT COATED PO SCH (10:36)
[2017-09-08] MEDS: ENOXAPARIN SODIUM INJ 40 MG/0.4 ML DISP.SYRIN SUBCUT SCH (10:36)
[2017-09-08 13:11] VITALS: BP 116/63
--- NOTE | 2017-09-08 13:36 | XCELERA REPORT ---
[address] [address] Transthoracic Echocardiogram Report Name: FABIOLA ZHANG Age: 47 yrs Gender: Male : 1970 Patient Status: Inpatient Patient Location: [address] [place], [place] [address]A Study Date: 09/08/2017 09:54 AM Height: 67 in Weight: 214 lb BSA: 2.1 m2 Procedure: A two-dimensional transthoracic echocardiogram with color flow and Doppler was performed. Study Quality: Fair. Reason For Study: ATRIAL FIBRILLATION / MURMUR History: ATRIAL FIBRILLATION / MURMUR. Ordering Physician: JYOTI JETER Performed By: Tomi Lacey Interpretation Summary The left ventricle is normal in size. There is normal left ventricular wall thickness. LV EF is 65% Left ventricular systolic function is normal. Doppler measurements suggest normal left ventricular diastolic function The left ventricular wall motion is normal. There is no thrombus. The right ventricle is normal in size and function. The left atrium is mildly dilated. The interatrial septum is intact with no evidence for an atrial septal defect. There is no evidence of mitral valve prolapse. There is no vegetation seen on the mitral valve. There is no mitral valve stenosis. There is a trace amount of mitral regurgitation There is no aortic valvular vegetation. There is no aortic valve stenosis There is no LVOT obstruction. No aortic regurgitation is present. There is no tricuspid stenosis. There is a trace amount of tricuspid regurgitation RVSP is 33 mm of Hg with RA mean of 5,and is just above the upper limts normal value od 30 mm of Hg. There is no pulmonic valvular stenosis. There is no pulmonic valvular regurgitation. There is no pericardial effusion. MMode/2D Measurements & Calculations RVDd: 2.5 cm LVIDd: 5.0 cm FS: 40.9 % Ao root diam: 2.8 cm IVSd: 0.86 cm LVIDs: 3.0 cm EDV(Teich): 120.8 ml LVPWd: 0.86 cm ESV(Teich): 34.5 ml Ao root area: 6.2 cm2 EF(Teich): 71.4 % Doppler Measurements & Calculations MV E max jered: MV dec slope: Ao V2 max: LV V1 max P.3 cm/sec 159.7 cm/sec 5.9 mmHg MV A max jered: 486.1 cm/sec2 Ao max PG: LV V1 max: 54.9 cm/sec MV dec time: 10.2 mmHg 121.5 cm/sec MV E/A: 1.6 0.18 sec PA V2 max: TR max jered: RAP systole: 81.8 cm/sec 264.9 cm/sec 5.0 mmHg PA max PG: TR max P.2 mmHg 2.7 mmHg RVSP(TR): 33.2 mmHg Left Ventricle The left ventricle is normal in size. There is normal left ventricular wall thickness. LV EF is 65%. Left ventricular systolic function is normal. Doppler measurements suggest normal left ventricular diastolic function. The left ventricular wall motion is normal. There is no thrombus. There is no ventricular septal defect visualized. Right Ventricle The right ventricle is normal in size and function. Atria The right atrium is normal. The left atrium is mildly dilated. The interatrial septum is intact with no evidence for an atrial septal defect. Mitral Valve There is no evidence of mitral valve prolapse. There is no vegetation seen on the mitral valve. There is no mitral valve stenosis. There is a trace amount of mitral regurgitation. Aortic Valve The aortic valve is trileaflet. The aortic valve opens well. There is no aortic valvular vegetation. There is no aortic valve stenosis. There is no LVOT obstruction. No aortic regurgitation is present. Tricuspid Valve There is no tricuspid stenosis. There is a trace amount of tricuspid regurgitation. RVSP is 33 mm of Hg with RA mean of 5,and is just above the upper limts normal value od 30 mm of Hg. Pulmonic Valve There is no pulmonic valvular stenosis. There is no pulmonic valvular regurgitation. Great Vessels The aortic root is normal size. Effusions There is no pericardial effusion. : JYOTI JETER > Flakita Hilliard
[2017-09-08] MEDS: ACETAMINOPHEN 325 MG TABLET PO PRN (14:43)
--- NOTE | 2017-09-08 16:25 | PDOC DISCHARGE SUMMARY ---
General - Admit/Disc Date/PCP Admission Date/Primary Care Provider: 09/06/17 18:39 Discharge Date: 09/08/17 - Discharge Diagnosis (1) Atrial fibrillation with rapid ventricular response Is this a current diagnosis for this admission?: Yes (2) Hyperlipidemia Is this a current diagnosis for this admission?: Yes (3) Hypertension Is this a current diagnosis for this admission?: Yes (4) Obesity (BMI 30.0-34.9) Is this a current diagnosis for this admission?: Yes - Additional Information Resuscitation Status: Full Code Discharge Diet: Cardiac, Diabetic Discharge Activity: Activity As Tolerated, Slowly Increase Activity, Walk Frequently Home Medications: Bimatoprost [Lumigan] 1 drop OU QHS 09/06/17 Aspirin [Ecotrin 325 mg EC Tablet] 325 mg PO DAILY #30 tabec 09/08/17 Atorvastatin Calcium [Lipitor 80 mg Tablet] 40 mg PO QHS #30 tablet 09/08/17 Metoprolol Succinate [Toprol Xl 25 mg Tab.sr] 25 mg PO Q12 #60 tab.sr.24h History of Present Illness History of Present Illness: Please see H&P for full HPI Hospital Course Hospital Course: FABIOLA ZHANG is a 47 year old male presenting with a 1 day complaint of having rapid heart beat. Patient states he was sitting down having lunch at work, when he felt short of breathe. He states he could feel his heart beating irregularly. He states states that this happened to him 6 months ago 6 he was started on some eye drops for his glaucoma which could cause a fib. He stopped taking that medication. Patient states he was treated for a fib and discharged. He states that something happened 2 years ago but after the records were reviewed, it was not afib at that time it was acid reflux. Patient reports having a stress test 2 year ago which was negative. In the ED, he was found to be in afib with RVR. Patient was given cardizem bolus followed by cardizem gtt. Hospitalist called to admit and treat patient for afib with RVR. Patient was admitted to [facility]. Patient improved significantly and was transitioned to metoprolol. Echocardiogram was performed which was unrevealing with the exception of some left atrial enlargement. Patient did not have a PE. Cardiology was consulted and we appreciate their input. Patient was quite concerned with the side effects of medication being reluctant to take a statin after be finding that his LDL was 120. In light of this, patient was advised to take a full dose aspirin enteric-coated, and follow with his primary care physician for discussion of anticoagulation. I have also recommended an outpatient event monitor and cardiac stress test. Patient is doing well and discharged in stable condition. Physical Exam Vital Signs: Temp Pulse Resp BP Pulse Ox 98.0 F 67 18 116/63 95 09/08/17 15:16 09/08/17 15:16 09/08/17 15:16 09/08/17 12:04 09/08/17 15:16 Intake & Output 09/07/17 09/08/17 09/09/17 06:59 06:59 06:59 Intake Total 1262 951 Output Total 650 1700 Balance 612 -749 Weight 94.3 kg 93 kg Exam: General: Obese, awake alert and oriented x3, no acute respiratory distress HEENT: AT/NC, PERRL, EOMI, oropharynx is moist, pink, no scleral icterus, no conjunctival injection Neck: No JVD, trachea midline Chest: Clear to auscultation bilaterally, no wheezes rhonchi or rales CV: Regular rate and rhythm, normal S1 and S2, no murmur, rub, or gallop Abdomen: Soft, nontender to palpation, nondistended, active bowel sounds; no rebound, rigidity, or guarding Extremities: No cyanosis, clubbing or edema Neuro: Cranial nerves II through XII are grossly intact without focal deficits; awake alert and oriented x3 Psych: Normal mood and affect Results Laboratory Results: 09/07/17 04:11 Impressions: Chest X-Ray 09/06/17 16:45 IMPRESSION: NO ACUTE RADIOGRAPHIC FINDING IN THE CHEST. Qualifiers PATEINT BEING DISCHARGED WITH ANY OF THE FOLLOWING DIAGNOSIS?: No Plan Time Spent: Less than 30 Minutes
--- NOTE | 2017-09-09 03:08 | PROGRESS NOTE E ---
Progress Note NAME: FABIOLA ZHANG : 1970 AGE: 47Y DATE: 09/08/2017 ROOM: 306 SUBJECTIVE: The patient was brought in for the atrial fibrillation, is bradycardic. He is asymptomatic. He has no chest pain or discomfort. There is no PND, orthopnea, or leg edema. There are no TIA or CVA symptoms. OBJECTIVE: GENERAL: The patient is moderately obese, but well-groomed in no acute distress. VITAL SIGNS: His pulse is 69 beats per minute, which is a sinus rhythm, blood pressure is 100/54, respirations are 18 per minute, O2 saturations are 97% on room air. HEENT: Head is atraumatic, normocephalic. Eyes: Pupils are equal, round, regular, reactive to light and accommodation. Extraocular movements are normal. There is no conjunctival pallor. There is no scleral icterus. ENT is negative. NECK: Supple. There is no JVD. Carotids are equal. There is no bruit. Trachea is central. There is no goiter. LUNGS: Clear to auscultation and percussion. HEART: S1 and S2 are heard. There is no S3 gallop. There is no S4 gallop. There is a systolic murmur in the left sternal border at the apex. There is no rub. S1 is normal intensity. ABDOMEN: Soft and nontender. There is no hepatosplenomegaly. Bowel sounds are well heard. EXTREMITIES: Femoral are well felt. There are no femoral bruits. Leg pulses are well felt. There is no pedal edema. There is no cyanosis or clubbing. There is no calf tenderness. There is no DVT or cellulitis. CENTRAL NERVOUS SYSTEM: The patient is conscious, awake, alert, oriented x3 with no focal deficits. PSYCHIATRIC: The patient's judgment and insight are intact. His affect is normal. DIAGNOSTIC DATA: The patient had an echocardiogram. No early abnormality or mildly dilated left atrium findings. The left ventricle was normal in systolic and diastolic function. There was no LVH. LV ejection fraction was normal. There was trace VT and trace TR and no pulmonary hypertension of significance. IMPRESSION AND PLAN: 1. PAROXYSMAL ATRIAL FIBRILLATION. I would recommend him to continue with patient's metoprolol. The patient is reluctant to go on anticoagulation. Hence, we will put the patient on 325 mg of aspirin and we will follow the patient up in the office. We will get the patient 30-day event monitor. If that shows more frequent spells of paroxysmal atrial fibrillation, then would consider revisiting the need for anticoagulation with the patient. 2. HYPERTENSION. It seems to be well controlled. 3. SYSTOLIC MURMUR, MOST LIKELY A FLOW MURMUR. There is no presumed mitral regurgitation. 4. PREDIABETES. 5. CARRIER FOR CELIAC DISEASE. 6. HISTORY OF GLAUCOMA. 7. HYPERLIPIDEMIA. The patient does not seem to go on Lipitor due to side effects. Hence, we would not proceed this and we will try diet and exercise. We would stop the patient's hydralazine and decrease lisinopril to 2.5 mg p.o. daily along with the metoprolol. The patient has been given my cell phone number and we will make arrangements for the patient to get a 30-day event monitor. This will be sent to patient's home [employer]. The echo findings with the patient in detail. Note, 30 minutes spent on this patient with more than 50% of the time spent on direct patient care. Medications reviewed and changes made. Note, at present the decision making is of moderate complexity. Hence, we will sign off and follow the patient in the office. DICTATING PHYSICIAN: KOFFI MEYER M.D. [id number] RICKY#: [id number] ID: [id number] JOB#: [id number] ACCT: [id number] cc: >
== END 2017-09-08 16:01 | disposition home or self-care (01) | DRG 310 ==
LOC: ER 16:31 → EH 18:00 → UNDOADMOB 18:00 → EH 18:39 → INTOOBSV 18:39 → OBSVTOIN 18:39 → EH 20:25 → 3N 20:25
PROVIDERS: ADMIT Pediatrics; ATTEND Internal Medicine
PROC: 3E0F73Z Introduction of Anti-inflammatory into Respiratory Tract, Via Natural or Artificial Opening (ICD-10-PCS; principal; 2017-09-06)
DX: I48.0 Paroxysmal atrial fibrillation (principal); E78.5 Hyperlipidemia, unspecified; I10 Essential (primary) hypertension; R73.03 Prediabetes; E29.1 Testicular hypofunction; E66.9 Obesity, unspecified; Z68.32 Body mass index [BMI] 32.0-32.9, adult; Z83.3 Family history of diabetes mellitus; Z82.49 Family history of ischemic heart disease and other diseases of the circulatory system; Z84.89 Family history of other specified conditions; Z88.3 Allergy status to other anti-infective agents; Z88.0 Allergy status to penicillin; Z88.8 Allergy status to other drugs, medicaments and biological substances; Z79.899 Other long term (current) drug therapy
CPT/HCPCS: 36415; 71010; 80048; 80053; 80061; 81001; 83036; 83735; 84439; 84443; 84484; 85025; 85379; 85610; 85730; 93005; 93010; 93306; 96365; 96376; 99291; J1650; J3490; J7030

== ENCOUNTER 2018-06-01 11:47 | Emergency (ER) | payer BC ==
[2018-06-01] MEDS ORDERED: ASPIRIN 81 MG TABLET, CHEWABLE PO ONE (12:34)
--- NOTE | 2018-06-01 12:37 | ER Document Report ---
ED Medical Screen (RME) - General Chief Complaint: Chest Pain Stated Complaint: CHEST PAIN Time Seen by Provider: 06/01/18 12:30 Notes: RAPID MEDICAL EVALUATION DISCLOSURE I have seen this patient as part of a Rapid Medical Evaluation and, if applicable, placed any initially appropriate orders. The patient will be seen and fully evaluated, including a full history and physical exam, by a provider ( in Main ED or Fast Track) when a room becomes available. 47-year-old male here with complaints of midsternal nonradiating chest pain that started 2 days ago and has been constant. He has also had associated shortness of breath and generalized weakness. It is not worse with exertion or breathing or pressing on the area. He has taken some Motrin which has helped some but he continues to have a small amount of chest discomfort. This morning he went to see his steak sauce maker, Dr. Best, who told him to come here for evaluation. Denies any prior history of acute [place] PE. EXAM CTAB RRR TRAVEL OUTSIDE OF THE [place] IN LAST 30 DAYS: No - Related Data Allergies/Adverse Reactions: penicillin G [Penicillin G] Allergy (Severe, Verified 09/07/17 00:06) Iodine and Iodide Containing Produc Allergy (Intermediate, Verified 09/07/17 00: 06) levofloxacin [From Levaquin] Allergy (Intermediate, Verified 09/07/17 00:06) Past Medical History - Past Medical History Cardiac Medical History: Reports: Hx Atrial Fibrillation, Hx Hypercholesterolemia, Hx Hypertension Pulmonary Medical History: Denies: Hx Tuberculosis Renal/ Medical History: Denies: Hx Peritoneal Dialysis Past Surgical History: Reports: Hx Orthopedic Surgery - Immunizations Immunizations up to date: Yes Hx Diphtheria, Pertussis, Tetanus Vaccination: Yes History of Influenza Vaccine for 08/2017 - 01/2018 Season: No Physical Exam - Vital signs Vitals: Temp Pulse Resp BP Pulse Ox 97.8 F 58 L 16 122/65 99 06/01/18 11:58 06/01/18 11:58 06/01/18 11:58 06/01/18 11:58 06/01/18 11:58 Course - Vital Signs Vital signs: Temp Pulse Resp BP Pulse Ox 97.8 F 58 L 16 122/65 99 06/01/18 11:58 06/01/18 11:58 06/01/18 11:58 06/01/18 11:58 06/01/18 11:58
[2018-06-01 13:19] LABS: ABSOLUTE MONOCYTES (AUTO) 0.7 10^3/uL (0.1-1.4); ABSOLUTE NEUT (AUTO) 9.9 10^3/uL (1.7-8.2); BASOPHILS % (AUTO) 0.3 % (0-2); EOSINOPHILS % (AUTO) 0.3 % (0-6); HEMATOCRIT 45.1 % (37.9-51.0); HEMOGLOBIN 15.8 g/dL (13.5-17.0); LYMPHOCYTES % (AUTO) 8.7 % (13-45); MEAN CORPUSCULAR HEMOGLOBIN 31.6 pg (27.0-33.4); MEAN CORPUSCULAR VOLUME 90 fl (80-97); MONOCYTES % (AUTO) 6.2 % (3-13); PLATELET COUNT 233 10^3/uL (150-450); RED CELL DISTRIBUTION WIDTH 12.8 % (11.5-14.0); SEGMENTED NEUTROPHILS % (AUTO) 84.5 % (42-78); TOTAL CELLS COUNTED % (AUTO) 100 %; WHITE BLOOD COUNT 11.7 10^3/uL (4.0-10.5)
[2018-06-01 13:39] LABS: ANION GAP 11 (5-19); BLOOD UREA NITROGEN 18 mg/dL (7-20); CALCIUM 9.3 mg/dL (8.4-10.2); CARBON DIOXIDE 27 mmol/L (22-30); CHLORIDE 104 mmol/L (98-107); GLUCOSE 101 mg/dL (75-110); POTASSIUM 4.7 mmol/L (3.6-5.0); SODIUM 141.6 mmol/L (137-145)
--- NOTE | 2018-06-01 13:52 | RADIOLOGY REPORT (SQ) ---
EXAM DESCRIPTION: CHEST 2 VIEWS COMPLETED DATE/TIME: 06/01/2018 1:25 pm REASON FOR STUDY: CP SOB COMPARISON: 01/04/2017, 09/06/2017 chest films EXAM PARAMETERS: NUMBER OF VIEWS: two views TECHNIQUE: Digital Frontal and Lateral radiographic views of the chest acquired. RADIATION DOSE: NA LIMITATIONS: none FINDINGS: LUNGS AND PLEURA: No opacities, masses or pneumothorax. No pleural effusion. MEDIASTINUM AND HILAR STRUCTURES: No masses or contour abnormalities. HEART AND VASCULAR STRUCTURES: Heart normal size. No evidence for failure. BONES: No acute findings. HARDWARE: None in the chest. OTHER: No other significant finding. IMPRESSION: NO ACUTE RADIOGRAPHIC FINDING IN THE CHEST. TECHNICAL DOCUMENTATION: JOB ID: [id number] [employer]- All Rights Reserved Reading location - IP/workstation name: [email or web address]
--- NOTE | 2018-06-01 14:21 | ER Document Report ---
ED Cardiac - General Chief Complaint: Chest Pain Stated Complaint: CHEST PAIN Time Seen by Provider: 06/01/18 12:30 Notes: The patient is a 47-year-old male, past medical history intermittent A. fib, hypertension, hyperlipidemia, presents with 4 days of right upper chest pain and mild shortness of breath. He went to the [facility] and was sent to the ER for further evaluation. Patient's last stress test and heart cath was last year and, according to him, they were normal. He denies syncope, back pain, nausea, vomiting, leg swelling, headache, fevers, rash or abdominal pain. TRAVEL OUTSIDE OF THE [place] IN LAST 30 DAYS: No - Related Data Allergies/Adverse Reactions: penicillin G [Penicillin G] Allergy (Severe, Verified 06/01/18 12:35) Iodine and Iodide Containing Produc Allergy (Intermediate, Verified 06/01/18 12: 35) levofloxacin [From Levaquin] Allergy (Intermediate, Verified 06/01/18 12:35) Past Medical History - General Information source: Patient - Social History Smoking Status: Never Smoker Chew tobacco use (# tins/day): No Frequency of alcohol use: None Drug Abuse: None Family History: DM, Hypertension, Other - celiac disease Patient has suicidal ideation: No Patient has homicidal ideation: No - Past Medical History Cardiac Medical History: Reports: Hx Atrial Fibrillation, Hx Hypercholesterolemia, Hx Hypertension Pulmonary Medical History: Denies: Hx Tuberculosis Renal/ Medical History: Denies: Hx Peritoneal Dialysis Past Surgical History: Reports: Hx Orthopedic Surgery - Immunizations Immunizations up to date: Yes Hx Diphtheria, Pertussis, Tetanus Vaccination: Yes Hx Pneumococcal Vaccination: 11/24/10 Review of Systems - Review of Systems Notes: REVIEW OF SYSTEMS: CONSTITUTIONAL: -fevers, -chills EENT: -eye pain, -difficulty swallowing, -nasal congestion CARDIOVASCULAR: +chest pain, -syncope. RESPIRATORY: -cough, +SOB GASTROINTESTINAL: -abdominal pain, -nausea, -vomiting, -diarrhea GENITOURINARY: -dysuria, -hematuria MUSCULOSKELETAL: -back pain, -neck pain SKIN: -rash or skin lesions. HEMATOLOGIC: -easy bruising or bleeding. LYMPHATIC: -swollen, enlarged glands. NEUROLOGICAL: -altered mental status or loss of consciousness, -headache, - neurologic symptoms PSYCHIATRIC: -anxiety, -depression. ALL OTHER SYSTEMS REVIEWED AND NEGATIVE. Physical Exam - Vital signs Vitals: Temp Pulse Resp BP Pulse Ox 97.8 F 58 L 16 122/65 99 06/01/18 11:58 06/01/18 11:58 06/01/18 11:58 06/01/18 11:58 06/01/18 11:58 - Notes Notes: PHYSICAL EXAMINATION: GENERAL: Well-appearing, well-nourished and in no acute distress. HEAD: Atraumatic, normocephalic. EYES: Pupils equal round and reactive to light, extraocular movements intact, sclera anicteric, conjunctiva are normal. ENT: nares patent, oropharynx clear without exudates. Moist mucous membranes. NECK: Normal range of motion, supple without lymphadenopathy LUNGS: Breath sounds clear to auscultation bilaterally and equal. No wheezes rales or rhonchi. HEART: Regular rhythm, bradycardia ABDOMEN: Soft, nontender, normoactive bowel sounds. No guarding, no rebound. No masses appreciated. EXTREMITIES: Normal range of motion, no pitting or edema. No cyanosis. NEUROLOGICAL: Cranial nerves grossly intact. Normal speech, normal gait. Normal sensory and motor exams. PSYCH: Normal mood, normal affect. SKIN: Warm, Dry, normal turgor, no rashes or lesions noted. Course - Re-evaluation Re-evalutation: Patient appears well. His EKG and 2 sets of troponins do not show any acute ischemic changes. His HEART score is 3 (1 for age, 1 for story, 1 for risk factors) and he appears safe for outpatient workup of this chest pain with his car rider due to the very low risk of MACE. He is PERC negative with a low Wells score, so a PE is ruled out. She given very strict return precautions and he understands. - Vital Signs Vital signs: Temp Pulse Resp BP Pulse Ox 97.8 F 58 L 18 110/78 100 06/01/18 11:58 06/01/18 11:58 06/01/18 13:38 06/01/18 13:38 06/01/18 13:38 - Laboratory Result Diagrams: 06/01/18 12:55 06/01/18 12:55 Laboratory results interpreted by me: 06/01/18 12:55 WBC 11.7 H Seg Neutrophils % 84.5 H Lymphocytes % 8.7 L Absolute Neutrophils 9.9 H - Diagnostic Test Radiology reviewed: Image reviewed, Reports reviewed Radiology results interpreted by me: CXR: NAD - EKG Interpretation by Me EKG shows normal: Sinus rhythm, Garrison, Intervals, QRS Complexes Rate: Bradycardia When compared to previous EKG there are: No significant change Additional EKG results interpreted by me: No STEMI Discharge - Discharge Clinical Impression: Chest pain Qualifiers: Chest pain type: unspecified Qualified Code(s): R07.9 - Chest pain, unspecified Condition: Stable Additional Instructions: CHEST PAIN OF UNCLEAR CAUSE: The exact cause of your chest pain isn't clear. Fortunately, there is no evidence of a dangerous medical condition. Further testing may be required to find the source of the pain. Most often, we find that this pain is coming from the chest wall -- the muscles or rib joints in the chest. But chest pain can come from the lung and lung lining, the esophagus, the heart valves or heart lining, and even the stomach or gallbladder. Rest. Eat lightly until the pain is gone. We may prescribe medicine for pain and inflammation. You should call the physician immediately if the pain radiates to the shoulder, jaw or arms; if you start to run a fever or develop a cough; or if you develop shortness of breath, or other new or alarming symptoms. NORMAL EXAM AND WORKUP: At this time, your examination and workup show no significant abnormality. No significant abnormal physical findings were noted. All laboratory, EKG, and imaging (x-ray, CT scans, ultrasound) studies that were ordered show no significant abnormality. Although your examination and all studies that were ordered showed no significant abnormal finding, there are no examinations and no studies that are 100% accurate. There is always the possibility that some abnormality could exist and not be detected with physical examination or within the limits and capabilities of laboratory and other studies. You should return or follow up as you were instructed on your visit today for further evaluation if your symptoms do not resolve. CHEST WALL PAIN: Your chest pain may be coming from the chest wall. This is often caused by straining the muscles or joints in the chest during physical activity, direct trauma, coughing, or vigorous vomiting. Persons with arthritis are especially prone to this type of pain, due to inflammation of the cartilage joints near the breast bone. Occasionally, no cause can be found. Rest from strenuous physical activity. This kind of chest pain is usually made worse by movement of the chest. Depending on the symptoms, we may prescribe medicine for pain, muscle relaxation, and antiinflammatory effects. If the pain is new, and seems to be due to muscle strain, cold packs can help. Otherwise, apply gentle warmth to the painful area for 15 minutes every hour or two. You should call contact the doctor immediately if things change. Further evaluation is needed if you develop a fever or cough, if the nature of the pain changes, or if you become short of breath. ANGINA EPISODE: Your physician has diagnosed the pain you experienced as an episode of angina. Angina occurs when a portion of the heart muscle temporarily lacks oxygen. It does not cause any permanent heart damage, but serves as a warning. Hospitalization is not necessary now. Evaluation of your cardiac condition , and medical therapy for angina will be necessary. It's important you be sure to keep all appointments and take medication exactly as prescribed. Angina is usually treated with a type of "nitrate" medication. This is available as ointment, pills, or sublingual (under the tongue) tablets. Depending on your clinical situation, other medications may be added to help control angina. These may include beta blockers or calcium blockers. If episodes of angina are occurring with increased frequency, or if chest pain lasts longer than 15 minutes or does not respond to nitroglycerin, you must seek emergency medical care immediately. ASPIRIN: Aspirin has been shown to have a beneficial effect on blood circulation by reducing the clotting effect of platelets in the blood. These beneficial effects can be achieved by taking just a single baby (81 mg) aspirin a day. It is recommended that any person over the age of forty take a single baby aspirin every day for heart and brain circulation, unless you are allergic to aspirin or have some significant bleeding disorder. It is strongly recommended that people who have proven cardiac or blood circulation disturbances should take a baby aspirin every day. FOLLOW-UP CARE: If you have been referred to a physician for follow-up care, call the physician s office for an appointment as you were instructed or within the next two days. If you experience worsening or a significant change in your symptoms, notify the physician immediately or return to the Emergency Department at any time for re-evaluation. Referrals: EVELYN GMÓEZ MD [Primary Care Provider] - Follow up as needed
[2018-06-01 17:28] VITALS: BP 105/67
--- NOTE | 2018-06-01 20:22 | EKG REPORT ---
SEVERITY:- BORDERLINE ECG - SINUS RHYTHM BORDERLINE T ABNORMALITIES, INFERIOR LEADS : Confirmed by: Flakita Hilliard MD 01-Jun-2018 20:21:16
--- NOTE | 2018-06-01 20:22 | EKG REPORT ---
SEVERITY:- BORDERLINE ECG - SINUS RHYTHM BORDERLINE T ABNORMALITIES, INFERIOR LEADS : Confirmed by: Flakita Hilliard MD 01-Jun-2018 20:21:12
== END 2018-06-01 16:59 | disposition home or self-care (01) ==
LOC: ER 11:47
DX: R07.9 Chest pain, unspecified (principal); R06.02 Shortness of breath; I48.91 Unspecified atrial fibrillation; I10 Essential (primary) hypertension; E78.5 Hyperlipidemia, unspecified
CPT/HCPCS: 36415; 71046; 80048; 84484; 85025; 93005; 93010; 99285

== ENCOUNTER 2019-08-04 12:59 | Emergency (ER) | payer BC ==
--- NOTE | 2019-08-04 13:55 | ER Document Report ---
ED Medical Screen (RME) - General Chief Complaint: Foot Pain Stated Complaint: TOE PAIN Time Seen by Provider: 08/04/19 13:51 Primary Care Provider: EVELYN GÓMEZ MD [Primary Care Provider] - Follow up as needed Mode of Arrival: Ambulatory Information source: Patient Notes: Patient presents emergency department with complaints of right great toe pain due to ingrown toenail for the past 2 weeks. Patient has been picking at it. No signs of infection. He reports he wears steel toed shoes so he has to have it taken care of. He did call a artificial candy maker but he was told it would be 2 weeks until they can get an appointment. Patient declined Motrin. Reports he has a celiac disease. I have greeted and performed a rapid initial assessment of this patient. A comprehensive ED assessment and evaluation of the patient, analysis of test results and completion of the medical decision making process will be conducted by additional ED providers. Dictation of this chart was performed using voice recognition software; therefore, there may be some unintended grammatical errors. TRAVEL OUTSIDE OF THE [place] IN LAST 30 DAYS: No - Related Data Allergies/Adverse Reactions: penicillin G [Penicillin G] Allergy (Severe, Verified 08/04/19 13:00) Iodine and Iodide Containing Produc Allergy (Intermediate, Verified 08/04/19 13:00) levofloxacin [From Levaquin] Allergy (Intermediate, Verified 08/04/19 13:00) Past Medical History - Past Medical History Cardiac Medical History: Reports: Hx Atrial Fibrillation, Hx Hypercholesterolemia, Hx Hypertension Pulmonary Medical History: Denies: Hx Tuberculosis Renal/ Medical History: Denies: Hx Peritoneal Dialysis Past Surgical History: Reports: Hx Orthopedic Surgery - Immunizations Immunizations up to date: Yes Hx Diphtheria, Pertussis, Tetanus Vaccination: Yes History of Influenza Vaccine for 08/2017 - 01/2018 Season: No Physical Exam - Vital signs Vitals: Temp Pulse Resp BP Pulse Ox 97.7 F 61 18 119/72 95 08/04/19 13:03 08/04/19 13:03 08/04/19 13:03 08/04/19 13:03 08/04/19 13:03 Course - Vital Signs Vital signs: Temp Pulse Resp BP Pulse Ox 97.7 F 61 18 119/72 95 08/04/19 13:03 08/04/19 13:03 08/04/19 13:03 08/04/19 13:03 08/04/19 13:03 Doctor's Discharge - Discharge Referrals: EVELYN GÓMEZ MD [Primary Care Provider] - Follow up as needed
[2019-08-04] MEDS ORDERED: LIDOCAINE 2% INJ (20 MG/ML) 20 ML MDV INJ ONE (18:14)
--- NOTE | 2019-08-04 19:18 | ER Document Report ---
ED General - General Chief Complaint: Foot Pain Stated Complaint: TOE PAIN Time Seen by Provider: 08/04/19 13:51 Primary Care Provider: EVELYN GÓMEZ MD [Primary Care Provider] - Follow up as needed Mode of Arrival: Ambulatory TRAVEL OUTSIDE OF THE [place] IN LAST 30 DAYS: No - HPI Notes: Patient is a 49-year-old male who presents emergency department for evaluation of left ingrown toenail. He tried an appoint with a clay digger but is unable to do so for a few weeks. He is trying to bring it back on his own but it was unsuccessful. He has a significant amount of pain, particularly with ambulation. Denies any fevers or chills. No nausea or vomiting. No other acute complaints or concerns. - Related Data Allergies/Adverse Reactions: penicillin G [Penicillin G] Allergy (Severe, Verified 08/04/19 13:00) Iodine and Iodide Containing Produc Allergy (Intermediate, Verified 08/04/19 13:00) levofloxacin [From Levaquin] Allergy (Intermediate, Verified 08/04/19 13:00) Past Medical History - General Information source: Patient - Social History Smoking Status: Never Smoker Frequency of alcohol use: None Drug Abuse: None Family History: DM, Hypertension, Other - celiac disease Patient has suicidal ideation: No Patient has homicidal ideation: No - Past Medical History Cardiac Medical History: Reports: Hx Atrial Fibrillation - Aspirin, no other anticoagulants, Hx Hypercholesterolemia, Hx Hypertension Pulmonary Medical History: Denies: Hx Tuberculosis Renal/ Medical History: Denies: Hx Peritoneal Dialysis Past Surgical History: Reports: Hx Orthopedic Surgery - Immunizations Immunizations up to date: Yes Hx Diphtheria, Pertussis, Tetanus Vaccination: Yes Hx Pneumococcal Vaccination: 11/24/10 Review of Systems - Review of Systems Constitutional: No symptoms reported EENT: No symptoms reported Cardiovascular: No symptoms reported Respiratory: No symptoms reported Genitourinary: No symptoms reported Musculoskeletal: No symptoms reported Skin: See HPI Neurological/Psychological: No symptoms reported Physical Exam - Vital signs Vitals: Temp Pulse Resp BP Pulse Ox 97.7 F 61 18 119/72 95 08/04/19 13:03 08/04/19 13:03 08/04/19 13:03 08/04/19 13:03 08/04/19 13:03 - Notes Notes: Is a pleasant 49-year-old male who appears stated age in no acute distress. Head is neuropsych and atraumatic. Heart is irregularly irregular with normal S1-S2, lungs are clear to oscillation bilaterally. Abdomen soft, nontender, normoactive bowel sounds. Examination of the left great toe yields an ingrown toenail, on the medial aspect of the great toe. No paronychia, no active bleeding, no significant induration, erythema, or lymphangitic streaking. Neurovascularly intact distally. Course - Re-evaluation Re-evalutation: 08/04/19 19:11 Patient presented to the emergency department for evaluation of left great ingrown toenail. I do not see any signs of active infection at this time. I explained to the patient that I would be happy to try and treat this at least temporarily, but unfortunately the department was very busy at the time and he would have to wait. The patient waited here without any complaints or concerns. At the time of the procedure, the area was prepped, and attempts were going to be made to anesthetize the toe. He stated that he was unaware of the fact that needles would be used. He did not feel comfortable with that. He states that his clay digger "would put him to sleep." It was explained to the patient that we did not find that appropriate in the emergency department given the risks associated with sedation versus this procedure. He states that he would rather just be discharged and follow-up with his clay digger. As I do not see any signs of active infection at this time, we will discharge him with instructions in regards to ingrown toenail and close follow-up. - Vital Signs Vital signs: Temp Pulse Resp BP Pulse Ox 97.7 F 61 18 119/72 95 08/04/19 13:03 08/04/19 13:03 08/04/19 13:03 08/04/19 13:03 08/04/19 13:03 Discharge - Discharge Clinical Impression: Ingrown toenail of left foot Condition: Stable Disposition: HOME, SELF-CARE Instructions: Ingrown Nail ([facility]) Additional Instructions: Keep area clean with soap and water. Follow-up with podiatry. Return to the emergency department with worsening or new concerning symptoms of any sort. Referrals: EVELYN GÓMEZ MD [Primary Care Provider] - Follow up as needed
[2019-08-04 19:24] VITALS: BP 121/69
== END 2019-08-04 19:24 | disposition home or self-care (01) ==
LOC: ER 12:59
DX: L60.0 Ingrowing nail (principal); I48.91 Unspecified atrial fibrillation; Z79.82 Long term (current) use of aspirin
CPT/HCPCS: 99283; J3490

== ENCOUNTER 2019-12-20 06:15 | Emergency (ER) | payer BC ==
[2019-12-20 06:22] VITALS: BP 125/72
[2019-12-20] MEDS ORDERED: CETIRIZINE 10 MG TABLET PO ONE (06:56)
--- NOTE | 2019-12-20 07:00 | ER Document Report ---
HPI - HPI Time Seen by Provider: 12/20/19 06:43 Pain Level: 3 Context: Patient is a 49-year-old male who presents to the emergency department with a chief complaint of ringing in his ears for the past 5 days. Patient denies any pain, but states that he continues to have the ringing. Patient has a history of atrial fibrillation and hypertension. He states that he stopped taking his aspirin because of the ringing. He saw his primary care provider 3 days ago and was referred out to an flight operations coordinator, but has not seen the flight operations coordinator yet. - ROS Systems Reviewed and Negative: Yes All other systems reviewed and negative - CONSTITUTIONAL Constitutional: DENIES: Fever, Chills - EENT EENT: REPORTS: Ear Pain - Ringing in B. DENIES: Sore Throat, Nasal Drainage- Clear, Nasal Drainage-Purulent, Congestion, Eye problems - NEURO Neurology: DENIES: Headache - CARDIOVASCULAR Cardiovascular: DENIES: Chest pain - RESPIRATORY Respiratory: DENIES: Trouble Breathing, Coughing - MUSCULOSKELETAL Musculoskeletal: DENIES: Extremity pain - DERM Skin Color: Normal Skin Problems: None Past Medical History - Social History Smoking Status: Never Smoker Family History: DM, Hypertension, Other - celiac disease Patient has suicidal ideation: No Patient has homicidal ideation: No - Past Medical History Cardiac Medical History: Reports: Hx Atrial Fibrillation - Aspirin, no other anticoagulants, Hx Hypercholesterolemia, Hx Hypertension Pulmonary Medical History: Denies: Hx Tuberculosis Renal/ Medical History: Denies: Hx Peritoneal Dialysis Past Surgical History: Reports: Hx Orthopedic Surgery - Immunizations Immunizations up to date: Yes Hx Diphtheria, Pertussis, Tetanus Vaccination: Yes Hx Pneumococcal Vaccination: 11/24/10 Vertical Provider Document - CONSTITUTIONAL Agree With Documented VS: Yes Exam Limitations: No Limitations General Appearance: No Apparent Distress - INFECTION CONTROL TRAVEL OUTSIDE OF THE [place] IN LAST 30 DAYS: No - HEENT HEENT: Atraumatic, Normocephalic, PERRLA, Pharyngeal Erythema. negative: Conjuctival Injection, Pharyngeal Exudate, Pharyngeal Tenderness, Tympanic Membrane Red, Tympanic Membrane Bulging Notes: Edema and erythema noted to the nasal mucosa. Fluid noted behind left tympanic membrane. - RESPIRATORY Respiratory: Breath Sounds Normal, No Respiratory Distress - CARDIOVASCULAR Cardiovascular: Regular Rate, Regular Rhythm Pulses: Normal: Radial - MUSCULOSKELETAL/EXTREMETIES Musculoskeletal/Extremeties: FROM - NEURO Level of Consciousness: Awake, Alert, Appropriate Motor/Sensory: No Motor Deficit, No Sensory Deficit - DERM Integumentary: Warm, Dry, No Rash Course - Re-evaluation Re-evalutation: 12/20/19 Patient has small amount of clear fluid behind his left ear. I suspect this is the cause of the patient's ringing in his ears. He will be started on Flonase and cetirizine to help with his symptoms. Patient also does have edema and erythema noted to his nasal mucosa. Follow-up with his primary care provider and audiology in regards to this visit. No tenderness noted to the mastoid process. I have a very low suspicion for mastoiditis. Follow-up precautions were given. Verbal discharge instructions were given to the patient. They verbalized understanding. They are stable for discharge. - Vital Signs Vital signs: Temp Pulse Resp BP Pulse Ox 97.7 F 58 L 18 125/72 98 12/20/19 06:20 12/20/19 06:20 12/20/19 06:20 12/20/19 06:20 12/20/19 06:20 Discharge - Discharge Clinical Impression: Ringing in the ears Qualifiers: Laterality: bilateral Qualified Code(s): H93.13 - Tinnitus, bilateral Condition: Stable Disposition: HOME, SELF-CARE Additional Instructions: You were seen today in the emergency department for ringing in your ears. You have a small amount of fluid behind her left ear. This may be the cause of the ringing in your ears. You are being started on cetirizine and Flonase. Please follow-up with your primary care provider and audiology in regards to this visit. Prescriptions: Cetirizine HCl [All Day Allergy] 10 mg PO DAILY #30 tablet Fluticasone Propionate [Flonase Nasal Winn 50 Mcg/Winn 16 gm] 2 sprays NASL DAILY #1 inhaler Forms: Return to Work Referrals: [facility] [Provider Group] - Follow up in 1 month
== END 2019-12-20 07:00 | disposition home or self-care (01) ==
LOC: ER 06:15
DX: H93.13 Tinnitus, bilateral (principal); I48.91 Unspecified atrial fibrillation; Z79.82 Long term (current) use of aspirin; E78.00 Pure hypercholesterolemia, unspecified; I10 Essential (primary) hypertension
CPT/HCPCS: 99283

== ENCOUNTER → 2019-12-30 | Outpatient (CLI) | payer BC ==
--- NOTE | 2019-12-31 14:59 | RADIOLOGY REPORT (SQ) ---
EXAM DESCRIPTION: MRI ORBIT/FACIAL/NECK WITHOUT COMPLETED DATE/TIME: 12/30/2019 6:47 pm REASON FOR STUDY: H93.13 TINNITUS, BILATERAL H93.13 TINNITUS, BILATERAL COMPARISON: None. TECHNIQUE: Multiplanar imaging includes non-contrasted T1, T2, FLAIR, and diffusion with ADC map seq uences. Thin section axial T2 weighted images, thin section axial and coronal T1 weighted images through the internal auditory canals and inner ear structures. Images stored on PACS. LIMITATIONS: Please note that the patient refused IV contrast. FINDINGS: ANATOMY: No anomalies. Normal vascular flow voids. Pituitary fossa normal. CSF SPACES: Normal in size and contour. No hemorrhage. CEREBRUM: Sulci and gyri normal in size and contour. Normal white matter signal on FLAIR imaging. No evidence of hemorrhage, mass, or extraaxial fluid collection. POSTERIOR FOSSA: No signal alteration. No hemorrhage. No edema, masses or mass effect. Internal nilda tory canals, cerebello-pontine angles, mastoids normal. Thin section T2 weighted images the temporal bones are unremarkable DIFFUSION IMAGING: Negative for acute or sub-acute infarction. ORBITS: No masses. Globes normal. PARANASAL SINUSES: No fluid levels. Mucosa normal. OTHER: No other significant finding. IMPRESSION: NORMAL MRI OF THE BRAIN WITHOUT INTRAVENOUS GADOLINIUM CONTRAST. EVIDENCE OF ACUTE STROKE: NO. TECHNICAL DOCUMENTATION: JOB ID: [id number]- All Rights Reserved Reading location - IP/workstation name: [email or web address]
== END ==
LOC: RAD 15:29
PROVIDERS: ATTEND Otolaryngology
DX: H93.13 Tinnitus, bilateral (principal)
CPT/HCPCS: 70540